=== PATIENT | female | born 1940 | race Caucasian/White ===

== ENCOUNTER 2023-09-05 12:18 | Outpatient (REF) | payer OTHER, SELFPAY ==
[2023-09-05 13:45] LABS: Vitamin B12 275 pg/mL (200-900)
== END 2023-09-05 12:19 | disposition home or self-care (01) ==
LOC: HO.LAB 12:18
PROVIDERS: PCP Internal Medicine; Visit Provider Psychiatry & Neurology Neurology
DX: G30.9 Alzheimer's disease, unspecified (principal)
CPT/HCPCS: 36415; 82607

== ENCOUNTER 2025-05-15 09:18 | Outpatient (REF) | payer MEDICARE, OTHER, SELFPAY ==
[2025-05-15 14:16] LABS: Alanine Aminotransferase 13 U/L (0-31); Albumin Level 4.5 g/dL (3.5-5.0); Alkaline Phosphatase 61 U/L (39-117); Anion Gap 11 (12-20); Aspartate Amino Transferase 26 U/L (5-31); Blood Urea Nitrogen 25 mg/dL (9-16); Calcium 10.2 mg/dL (8.4-10.2); Carbon Dioxide 29 mmol/L (22-29); Chloride 109 mmol/L (96-108); Estimated Glomerular Filt Rate 33; Potassium 4.6 mmol/L (3.3-5.1); Sodium 144 mmol/L (135-145); Total Protein 7.1 g/dL (6.5-8.0)
[2025-05-15 15:12] LABS: Parathyroid Hormone Intact 157.6 pg/mL (8.7-77.1)
[2025-05-17 21:43] LABS: Prot Elec - Albumin 4.1 g/dL (3.8-4.8); Prot Elec - Alpha1 0.3 g/dL (0.2-0.3); Prot Elec - Alpha2 0.7 g/dL (0.5-0.9); Prot Elec - Beta 1 0.4 g/dL (0.4-0.6); Prot Elec - Beta 2 0.4 g/dL (0.2-0.5); Prot Elec - Gamma 0.7 g/dL (0.8-1.7); Prot Elec - Total Protein 6.7 g/dL (6.1-8.1)
== END 2025-05-15 09:19 | disposition home or self-care (01) ==
LOC: HO.HKASLDS 09:18
PROVIDERS: PCP Internal Medicine; Referring Provider Internal Medicine; Visit Provider Internal Medicine Hypertension Specialist
DX: N18.30 Chronic kidney disease, stage 3 unspecified (principal); D64.9 Anemia, unspecified
CPT/HCPCS: 36415; 80053; 83970; 84165; 99202

== ENCOUNTER 2025-05-15 09:18 | Outpatient (AMB) | payer MEDICARE, OTHER, SELFPAY ==
[2025-05-15 09:20] VITALS: BP 132/80; PULSE 60; O2SAT 93; BMI 20.8
--- NOTE | 2025-05-15 09:20 | HO.NEPHOV ---
Vital Signs 05/15/25 09:20 Height 5 ft 6 in Weight 129 lb BMI 20.8 BP 132/80 Blood Pressure Location Rt brachial Position Sitting Pulse 60 Pulse Source Pulse Oximeter Pulse Oximetry (%) 93 Oxygen Delivery Method Room Air Intake Visit Reasons: ENP: Hypertension/ LVM [employer] Required: No Accompanied by: Daughter Allergies No Known Allergies Allergy (Verified 05/15/25 09:23) Medication List - Last Reconciled 05/15/25 by Emre Moss MD albuterol sulfate 90 mcg/actuation 2 puffs inhalation Q6H PRN aspirin 81 mg PO DAILY atorvastatin 10 mg PO DAILY fluticasone furoate-vilanterol 100-25 mcg/dose (Breo Ellipta) 1 ea inhalation DAILY levothyroxine 50 mcg PO DAILY memantine 5 mg PO DAILY timolol maleate 0.5% 1 drp ophthalmic (eye) BID HPI Comments Details: The patient is an 84-year-old female presenting with chronic kidney disease and cognitive decline. The cognitive decline began a couple of years ago and has been progressively worsening, with a diagnosis of vascular dementia suggested by Dr. Toussaint based on an MRI from 2019. The patient has no family history of dementia, and potential causes such as chronic alcohol use and hypertension have been ruled out. She has no history of hypertension. No history of alcohol use at all The chronic kidney disease was identified during a routine follow-up when labs revealed a creatinine level of 1.61 mg/dL and kidney function at 32ml/mt. The patient has not been diagnosed with hypertension, although it was initially suspected as a cause for referral. The patient experiences frequent nocturia, getting up several times at night, which may be related to her kidney function. The patient has a history of recurrent urinary tract infections, managed with low-dose macrobid by her primary care physician. These infections have decreased in frequency recently, but she continues to experience frequent urination at night. Anemia was noted with a hemoglobin level of 11.4 g/dL, . Seen by Dr. Eaton and advised against iron supplementation due to age-related anemia being common. The patient has hypothyroidism, which was previously poorly managed due to non-adherence to medication, resulting in a TSH level of 12. Her thyroid function has since stabilized with her managing her medication regimen. Overall oral intake has been inadequate. She drinks Coke every day. [facility] Medical History (Updated 05/15/25 @ 09:33 by Emre Moss MD) Restless leg syndrome Osteoporosis Hypothyroidism Glaucoma Colon polyp Cervical spinal stenosis Atherosclerosis of aorta Adrenal adenoma Abdominal aortic aneurysm Stage 3 severe COPD by GOLD classification Centrilobular emphysema Advanced COPD Age-related cataract of both eyes Irritable bowel syndrome Bloating Pulmonary nodules B12 deficiency CKD (chronic kidney disease), stage III Bladder stone Urge incontinence Chronic headache Elevated blood pressure reading Surgical History H/O breast biopsy H/O cataract extraction (~01/2011) Family History Sister Breast cancer Review of Systems Const Denies anorexia, Denies fever(s) and Denies weakness Eyes Denies blurry vision Card Denies no additional complaints and Denies dyspnea Resp Reports no additional complaints, Reports cough and Denies dyspnea GI Denies melena and Denies diarrhea Denies hematuria Musc Denies tingling Skin/Breast Denies rash Neuro Denies focal weakness, Denies tingling, Denies tremor(s) and Denies weakness Physical Exam Vital Signs: Last Vital Signs Pulse 60 05/15/25 09:20 BP 132/80 05/15/25 09:20 Pulse Ox 93 05/15/25 09:20 Oxygen Delivery Method Room Air 05/15/25 09:20 BMI result Body Mass Index 20.8 Comfortable Neck supple no JVD. Lungs entry equal no rales. Heart S1-S2 heard no gallop or rub. Abdomen soft nontender. Neuro alert awake oriented. No asterixis. Extremities no edema. Assessment & Plan Assessment & Plan (1) CKD (chronic kidney disease), stage III: Code(s): N18.30 - Chronic kidney disease, stage 3 unspecified Category: Medical (2) Anemia: Code(s): D64.9 - Anemia, unspecified Category: Medical Plan Aster has chronic kidney disease. Etiology needs to be determined. Cannot rule out a component of acute kidney injury at this time. No history of hypertension. I will initiate a workup including basic urine studies along with urine protein creatinine ratio. Obtain renal ultrasonogram to assess echogenicity and rule out hydronephrosis given the history of frequent urination/UTI. I will also order basic serologies. Increase your increase her p.o. fluid intake Continue to avoid nephrotoxic agents including NSAIDs. I have not made any changes to her medications today. She returned office next few weeks after the basic workup is completed. Orders: Orders US renal BI Today N18.30 - Chronic kidney disease, stage 3 unspecified Comprehensive Met. Panel Today D64.9 - Anemia, unspecified, N18.30 - Chronic kidney disease, stage 3 unspecified Parathyroid Hormone Intact Today D64.9 - Anemia, unspecified, N18.30 - Chronic kidney disease, stage 3 unspecified Total Protein Urine Random Today D64.9 - Anemia, unspecified, N18.30 - Chronic kidney disease, stage 3 unspecified UA and rflx microscopic Today D64.9 - Anemia, unspecified, N18.30 - Chronic kidney disease, stage 3 unspecified Creatinine Urine Today D64.9 - Anemia, unspecified, N18.30 - Chronic kidney disease, stage 3 unspecified Protein Electrophoresis, Serum Today D64.9 - Anemia, unspecified, N18.30 - Chronic kidney disease, stage 3 unspecified Coding Level of Care Code New Pt Level 4 (10406) Diagnoses CKD (chronic kidney disease), stage III N18.30 Anemia D64.9
--- OUTSIDE RECORDS SUMMARY | 2025-05-15 09:38 | XMS_ITS | Clinical Summary ---
Author Organization 175 [facility] Address [address] [place] [address] Phone Care Team Providers Care Community Living Coach Name Role Phone Gus Reynolds MD Primary Care Provider [phone] Allergies No known active allergies Medications fluticasone furoate-vilante roL (Breo Ellipta) 100-25 mcg/dose inhaler Inhale 1 Puff into the lungs daily. 04/11/20 24 Active timolol (TIMOPTIC) 0.5 % ophthalmic solution INSTILL 1 DROP INTO LEFT EYE TWICE A DAY 04/28/20 22 Active memantine (NAMENDA) 5 mg tablet Take 1 tablet (5 mg total) by mouth 1 (one) time each day. for 90 days 90 tablet 1 01/30/20 25 Active atorvastatin (LIPITOR) 10 mg tablet Take 1 tablet (10 mg total) by mouth 1 (one) time each day. 90 each 1 02/21/20 25 025 Active levothyroxine (SYNTHROID, LEVOTHROID) 50 mcg tablet TAKE 1 TABLET TUESDAY THROUGH TUESDAY, 2 TABLETS ON SATURDAYS AND SUNDAYS. 114 tablet 1 04/15/20 25 Active albuterol HFA (Ventolin HFA) 90 mcg/actuation inhalerIndicati ons:Chronic obstructive pulmonary disease, unspecified COPD type (CMS/HCC V24, CMS/HCC V28) Inhale 2 puffs by mouth every 6 (six) hours if needed for wheezing. 6.7 g 11 08/14/20 025 Discontinued dorzolamide (TRUSOPT) 2 % ophthalmic solution Left eye 10/30/19 025 Discontinued atorvastatin (LIPITOR) 10 mg tablet TAKE 1 TABLET BY MOUTH 1 TIME EACH DAY. 90 tablet 1 02/20/20 025 Discontinued Active Problems Problem Noted Date Diagnosed Date Elevated blood pressure reading 04/24/2024 Chronic headaches 10/21/2020 Urge incontinence 04/19/2020 Overview (08/28/2024): [facility] Bladder stone 03/27/2020 Overview (08/28/2024): Surgery 03/2020 CKD (chronic kidney disease) , stage III ([facility] V24, [facility] V28) 03/27/2020 Overview (08/28/2024): Dr. Casas in past B12 deficiency 11/02/2019 Overview (08/28/2024): 10/2019 labs, trying high-dose oral supplementation, good response Pulmonary nodules 08/14/2019 Bloating 02/01/2019 Irritable bowel syndrome 02/01/2019 Age-related cataract of both eyes 06/23/2018 Advanced COPD ([facility] V24, [facility] V28) 018 Centrilobular emphysema ([facility] V24, [facility] V2 8) 05/05/2018 Stage 3 severe COPD by GOLD classification ([facility] V24, [facility]/HCC V28) 05/05/2018 Overview (08/28/2024): Reduced DLCO with PFTs Pulm nodules, following with [facility] Lung Ca Screening, pulmonology Abdominal aortic aneurysm (AAA) ([facility] V24) Overview (08/28/2024): 02/2012: stable at 2.7 cm . 07/2012: stable at 3 cm. 2013 and 2014: 3.3 cm. 2019 3.7cm Adrenal adenoma 10/14/2017 Overview (08/28/2024): R adrenal 1.2 cm adenoma, 02/2012. Repeat CT scan 08/2012 stable Atherosclerosis of aorta ([facility] V24) 8 Cervical spinal stenosis 10/14/2017 Overview (08/28/2024): Cervical MRI C3-4 bilaterally Colon polyp 10/14/2017 Overview (08/28/2024): Polpectomy Dr. Wilde and repeat in 2015. Glaucoma 10/14/2017 HTN (hypertension) 10/14/2017 Hypothyroidism 10/14/2017 Osteoporosis 10/14/2017 Overview (08/28/2024): Start of Fosamax 11/26/20 Restless leg syndrome 10/14/2017 Encounters Date Type Department Care Team Description 05/02/[address] [facility] Hematology Oncology [address] [place] [address] Juwan Valdez MD 04/24/2025 3:00 PM EDT Office Visit [facility] Hematology Oncology [address] [place] [address] Juwan Valdez MD Normocytic anemia 04/18/2025 Telephone Internal Medicine - [place] [address] [phone] Gus Reynolds MD 04/18/2025 Telephone Internal Medicine [facility] [address] [phone] Gus Reynolds MD 04/11/2025 11:38 AM EDT - 04/11/2025 11:59 PM EDT Hospital Encounter [facility] Xray [address] [place] [address] Chronic obstructive pulmonary disease, unspecified COPD type (CMS/HCC V24, [facility] V28) Discharge Disposition: Home or Self Care 04/11/2025 10:35 AM EDT Office Visit Pulmonolgy - [place] [address] [phone] Jud Khan NP Chronic obstructive pulmonary disease, unspecified COPD type ([facility] V24, [facility] V28) (Primary Dx); Pulmonary nodules 03/22/2025 Telephone Internal Medicine - [address] [place] [address] Gus Reynolds MD Referral from Last 3 Months Immunizations Name Administration Dates Next Due Influenza trivalent, 0.5mL ( Fluad) 65yo and older 07/24/2024,06/02/2020,07/16/2019,06/23,07/04/2017 Influenza, Unspecified 06/10/2021 Pfizer SARS-CoV-2 COVID-19, mRNA, LNP-S, preservative free 12/10/2020,11/20/2020 Pneumococcal conjugate 13 va lent (Prevnar 13, PCV13) 2mo and older 08/19/2016 Pneumococcal polysaccharide 23 valent (Pneumovax 23) 2yo and older 08/22/2017,07/31/2010 Td Tetanus diptheria (Tdvax) 7yo and older 10/30/2019 Surgical History Surgery Date Site/Laterality Comments OTHER SURGICAL HISTORY PROCEDURE: AR EGD REMOVAL TUMOR POLYP/OTHER LESION SNARE TECH; COMMENT: polpectomy 2010 and repeat 2015, Dr. Wilde CATARACT EXTRACTION Bilateral PROCEDURE: HISTORICAL CATARACT REMOVAL COLONOSCOPY 01/11/2011 PROCEDURE: HISTORICAL COLONOSCOPY; COMMENT: Dr. Andry cherry OTHER SURGICAL HISTORY PROCEDURE: ---- OTHER ----; COMMENT: Breast biopsy Medical History Medical History Date Comments Osteoporosis 10/14/2017 DX:Osteoporosis COPD (chronic obstructive pu lmonary disease) ([facility] V24, [facility] V28) 10/14/2017 DX:COPD (chronic o bstructive pulmonary disease) (HCC) HTN (hypertension) 10/14/2017 DX:HTN (hyper tension) Hypothyroidism 10/14/2017 DX:Hypothyroidis m Restless leg syndrome 10/14/2017 DX:Restles s leg syndrome Colon polyp 10/14/2017 DX:Colon polyp; COMMENT: Polpectomy Dr. Wilde and repeat in 2015. Adrenal adenoma 10/14/2017 DX:Adrenal adeno ma; COMMENT: R adrenal 1.2 cm adenoma, 02/2012. Repeat CT scan 08/2012 stable Glaucoma 10/14/2017 DX:Glaucoma Atherosclerosis of aorta ([facility] V24) 10/14/2017 DX:Atherosclerosis of aorta (HCC) Abdominal aortic aneurysm (A AA) ([facility] V24) 10/14/2017 DX:Abdominal aortic aneurysm (AAA) (HCC); COMMENT: 02/2012: stable at 2.7 cm . 07/2012: stable at 3 cm. 2013 and 2014: 3.3 cm. Cervical spinal stenosis 10/14/2017 DX:Cerv ical spinal stenosis; COMMENT: Cervical MRI C3-4 bilaterally Family History Medical History Relation Name Comments Other: Unknown disease Father Other: Fluid around the lungs Mother Breast cancer Sister Relation Name Status Comments Father Mother Sister Social History Tobacco Use Types Packs/Day Years Used Date Smoking Tobacco: Former Cigarettes Q uit: 10/10/2005 Smokeless Tobacco: Never Comments Unknown Sex and Gender Information Value Date Recorded Sex Assigned at Female 12/27/2024 2:35 PM EDT Legal Sex Female 10:44 AM EST Gender Identity Female 12/27/2024 2:35 PM EDT Sexual Orientation Straight 12/27/2024 2: 35 PM EDT Obstetrics History Last Filed Vital Signs Vital Sign Reading Time Taken Comments Blood Pressure 150/98 04/24/2025 2:55 PM EDT Pulse 60 04/24/2025 2:55 PM EDT Temperature 37.1 C (98.8 F) 04/24/2025 2:55 PM EDT Respiratory Rate 16 04/11/2025 11:03 AM EDT Oxygen Saturation 97% 04/24/2025 2:55 PM EDT Inhaled Oxygen Concentration - - Weight 59 kg (130 lb) 04/24/2025 2:55 PM EDT Height 162.6 cm (5' 4 ) 04/24/2025 2:55 PM EDT Body Mass Index 22.31 04/24/2025 2:55 PM EDT Plan of Treatment Upcoming Encounters Date Type Department Care Team (Late st Contact Info) Description 05/27/2025 9:15 AM EDT Office Visit [facility] Hematology Oncology [address] [place] [address] Juwan Valdez MD [address] [place] [address] 04/22/2026 11:00 AM EDT Office Visit Pulmonolgy - [place] 175 [facility] [address] [place] [phone] Jud Khan NP 175 [facility] [address] [place] [address] Health Maintenance Due Date Last Done Comments Zoster Vaccines (1 of 2) 1959 Colorectal Cancer Screening: Colonoscopy 09/18/2022 Falls Risk Assessment 09/18/2022 Medicare Annual Wellness Visit 09/18/2022 Social Influencers of Health Screening 09/18/2022 Depression Screening 10/10/2024 COVID-19 Vaccine (7 - Pfizer risk season) 2025 08/01/2024, 08/05/2023, 06/21/2022, Additional history exists Influenza Vaccine (#1) 2025 , 08/02/2023, 08/05/2022, Additional history exists Hypertension/CHF/CAD Annual BMP Blood Test 04/24/2026 04/24/2025, 02/05/2025, 08/31/2024, Additional history exists DTaP,Tdap,and Td Vaccines (2 - Td or Tdap) 10/30/2029 10/30/2019 Cholesterol Screening (Lipid Panel) 02/05/2030 02/05/2025, 08/31/2024, 01/30/2024 Osteoporosis Screening (Bone Density Screening) 10/30/2030 10/30/2020, 12/13/2017 Pneumococcal Vaccine: 50+ Years Completed 08/22/2017, 08/19/2016, 07/31/2010 RSV Immunization Adult Patients Completed 08/01/2024 HIB Vaccines Aged Out No longer eligi ble based on patient's age to complete this topic HPV Vaccines Aged Out No longer eligi ble based on patient's age to complete this topic Hepatitis A Vaccines Aged Out No long er eligible based on patient's age to complete this topic Hepatitis B Vaccines Aged Out No long er eligible based on patient's age to complete this topic IPV Vaccines Aged Out No longer eligi ble based on patient's age to complete this topic MMR Vaccines Aged Out No longer eligi ble based on patient's age to complete this topic Meningococcal ACWY Vaccine Aged Out N o longer eligible based on patient's age to complete this topic Meningococcal B Vaccine Aged Out No l onger eligible based on patient's age to complete this topic RSV Immunization Patients Under 20 months Aged Out No longer eligible based on patient's age to complete this topic Varicella Vaccines Aged Out No longer eligible based on patient's age to complete this topic Procedures Procedure Name Priority Date/Time Associated Diagnosis Comments AR PROTEIN ELECTROPHORETIC FRACTIONATION & QUANTITATION SERUM Routine 04/24/2025 3:21 PM EDT Normocytic anemia PROTEIN, TOTAL Routine 04/24/2025 3:21 PM EDT Normocytic anemia CBC WITH AUTO DIFFERENTIAL Routine 04/24/2025 3:21 PM EDT Normocytic anemia BASIC METABOLIC PANEL Routine 04/24/2025 3:21 PM EDT Normocytic anemia PROTEIN ELECTROPHORESIS, SERUM Routine 04/24/2025 3:21 PM EDT Normocytic anemia ERYTHROPOIETIN Routine 04/24/2025 3:21 PM EDT Normocytic anemia RETICULOCYTE COUNT Routine 04/24/2025 3: 21 PM EDT Normocytic anemia VITAMIN B12 AND FOLATE Routine 3:21 PM EDT Normocytic anemia IRON AND TIBC Routine 04/24/2025 3:21 PM EDT Normocytic anemia FERRITIN Routine 04/24/2025 3:21 PM EDT Normocytic anemia CBC AND DIFFERENTIAL Routine 04/24/2025 3:21 PM EDT Normocytic anemia XR CHEST 2 VIEWS Routine 04/11/2025 11:5 5 AM EDT Chronic obstructive pulmonary disease, unspecified COPD type ([facility] V24, [facility] V28) LIPID PANEL WITH REFLEX TO DIRECT LDL Routine 02/05/2025 12:45 PM EDT Vascular dementia, unspecified dementia severity, unspecified whether behavioral, psychotic, or mood disturbance or anxiety ([facility] V24, [facility] V28) Stage 3 severe COPD by GOLD classification ([facility] V24, [facility] V28) Primary hypertension ABEL DEXA AXIAL SKELETON Routine 10/30/2020 2:27 PM EST Age-related osteoporosis without current pathological fracture from Last 3 Months or Most Recently Relevant to Health Maintenance Results * PATHOLOGIST REVIEW PROTEIN ELECTROPHORESIS (04/24/2025 3:21 PM EDT) Pathologist Interpretation Tayler Sneed MD 04/29/2025 3:16 PM EDT [facility] Blood Venous blood specimen / Unknown Venipuncture / Unknown 04/24/2025 3:21 PM EDT 04/24/2025 4:32 PM EDT Juwan Valdez MD LAB BLOOD ORDERABLES Final R esult [facility] [address] [place] [address], * Vitamin B12 and folate (04/24/2025 3:21 PM EDT) Vitamin B-12 358 250 - 900 pcg/mL LAB CHEMISTRY METHOD 04/24/2025 6:42 PM EDT [facility] Folate 11.4 2.8 - 17.0 ng/ml LAB CHEMISTRY METHOD 04/24/2025 6:42 PM EDT [facility] Blood Venous blood specimen / Unknown Venipuncture / Unknown 04/24/2025 3:21 PM EDT 04/24/2025 4:33 PM EDT us Juwan Valdez MD LAB BLOOD ORDERABLES Final R esult [facility] [address] [place] [address], * (ABNORMAL) CBC auto differential (04/24/2025 3:21 PM EDT) WBC 6.6 4.8 - 10.8 K/mcL LAB HEMETOLOGY METHOD 04/24/2025 4:56 PM EDT [facility] RBC 3.20(L) 3.80 - 4.80 M/mcL LAB HEMETOLOGY METHOD 04/24/2025 4:56 PM EDT [facility] Hemoglobin 10.7(L) 11.5 - 16.0 g/dL LAB HEMETOLOGY METHOD 04/24/2025 4:56 PM EDT [facility] Hematocrit 33.8(L) 35.0 - 47.0 % LAB HEMETOLOGY METHOD 04/24/2025 4:56 PM EDT [facility] MCV 105.0(H) 79.0 - 98.0 FL LAB HEMETOLOGY METHOD 04/24/2025 4:56 PM EDT [facility] MCH 33.2(H) 27.0 - 32.0 pcg LAB HEMETOLOGY METHOD 04/24/2025 4:56 PM EDT [facility] MCHC 31.7(L) 32.0 - 37.0 g/dL LAB HEMETOLOGY METHOD 04/24/2025 4:56 PM EDT [facility] RDW 12.9 11.0 - 15.0 % LAB HEMETOLOGY METHOD 04/24/2025 4:56 PM EDT [facility] Platelets 256 130 - 400 K/mcL LAB HEMETOLOGY METHOD 04/24/2025 4:56 PM EDT [facility] MPV 10.5 7.0 - 11.0 FL LAB HEMETOLOGY METHOD 04/24/2025 4:56 PM EDT [facility] NRBC 0.0 <1.0 % [facility]Y [facility] NRBC Absolute 0.00 <0.10 K/mcL LAB HEMETOLOGY METHOD 04/24[facility]2025 4[facility] Neutrophils Relative 63.4 % LAB HEMETOLOGY METHOD 04/24/2025 4:56 PM [facility] Lymphocytes Relative 22.4 % LAB HEMETOLOGY METHOD 04/24/2025 4:56 PM [facility] Monocytes Relative 10.5 % LAB HEMETOLOGY METHOD 04/24/2025 4:56 PM [facility] Eosinophils Relative 1.8 % LAB HEMETOLOGY METHOD 04/24/2025 4:56 PM [facility] Basophils Relative 1.4 % LAB HEMETOLOGY METHOD 04/24/2025 4:56 PM [facility] Immature Granulocytes Relative 0.5 % LAB HEMETOLOGY METHOD 04/24/2025 4:56 PM [facility] Neutrophils Absolute 4.17 1.50 - 7.00 K/mcL LAB HEMETOLOGY METHOD 04/24[facility]2025 4[facility] Lymphocytes Absolute 1.47 1.00 - 5.00 K/mcL LAB HEMETOLOGY METHOD 04/24/2025 4:56 [facility] Monocytes Absolute 0.69 0.20 - 1.00 K/mcL LAB HEMETOLOGY METHOD 04/24/2025 4:56 PM [facility] Eosinophils Absolute 0.12 0.00 - 0.50 K/mcL LAB HEMETOLOGY METHOD 04/24/2025 4:56 [facility] Basophils Absolute 0.09 0.00 - 0.20 K/[facility] HEMETOLOGY METHOD 04/24/2025 4:56 PM EDT [facility] Immature Granulocytes Absolute 0.03 0.00 - 0.03 K/[facility] LAB HEMETOLOGY METHOD 04/24/2025 4:56 PM EDT [facility] Blood Venous blood specimen / Unknown Venipuncture / Unknown 04/24/2025 3:21 PM EDT 04/24/2025 4:33 PM EDT Juwan Valdez MD LAB BLOOD ORDERABLES Final R esult [facility] [address] [place] [address], * Erythropoietin (04/24/2025 3:21 PM EDT) Erythropoietin 15.4 2.6 - 18.5 mIU/mL 04/29/2025 3:10 PM EDT [facility] Comment: Test performed at [facility], [address], [place] [address] Karyn Nash MD, PhD - Relief Worker Blood Venous blood specimen / Unknown Venipuncture / Unknown 04/24/2025 3:21 PM EDT 04/24/2025 4:33 PM EDT Juwan Valdez MD LAB BLOOD ORDERABLES Final R esult [facility] [address] [place] [address] * Iron and TIBC (04/24/2025 3:21 PM EDT) Iron 112 40 - 150 mcg/dL LAB CHEMISTRY METHOD 04/24/2025 6:19 PM EDT [facility] TIBC 275 250 - 450 mcg/dL LAB CHEMISTRY METHOD 04/24/2025 6:19 PM EDT [facility] Iron Saturation 41 15 - 50 % LAB CHEMISTRY METHOD 04/24/2025 6:19 PM EDT [facility] Blood Venous blood specimen / Unknown Venipuncture / Unknown 04/24/2025 3:21 PM EDT 04/24/2025 4:33 PM EDT Juwan Valdez MD LAB BLOOD ORDERABLES Final R esult [facility] [address] [place] [address], [place] [phone] * Reticulocyte count (04/24/2025 3:21 PM EDT) Retic Ct Abs 0.050 0.030 - 0.090 M/mcL LAB HEMETOLOGY METHOD 04/24/2025 4:56 PM EDT [facility] Retic Ct Pct 1.4 0.7 - 1.7 % LAB HEMETOLOGY METHOD 04/24/2025 4:56 PM EDT [facility] Immature Retic Fract 8.8 2.3 - 15.9 % LAB HEMETOLOGY METHOD 04/24/2025 4:56 PM EDT [facility] Reticulocyte Hemoglobin 36.6 >29.0 pcg LAB HEMETOLOGY METHOD 04/24/2025 4:56 PM EDT [facility] Blood Venous blood specimen / Unknown Venipuncture / Unknown 04/24/2025 3:21 PM EDT 04/24/2025 4:33 PM EDT Juwan Valdez MD LAB BLOOD ORDERABLES Final R esult [facility] [address] [place] [address], [place] [phone] * Protein electrophoresis, serum (04/24/2025 3:21 PM EDT) Total Protein 6.8 6.0 - 8.0 g/dL LAB CHEMISTRY METHOD 04/29/2025 3:16 PM EDT [facility] Albumin, Serum 3.7 2.9 - 4.1 g/dL LAB CHEMISTRY METHOD 04/29/2025 3:16 PM EDT [facility] Alpha 1 Globulin (g/dL) 0.2 0.1 - 0.5 g/dL LAB CHEMISTRY METHOD 04/29/2025 3:16 PM EDT [facility] Alpha 2 Globulin (g/dL) 1.1 0.7 - 1.5 g/dL LAB CHEMISTRY METHOD 04/29/2025 3:16 PM EDT [facility] Beta (g/dL) 1.1 0.7 - 1.5 g/dL LAB CHEMISTRY METHOD 04/29/2025 3:16 PM EDT [facility] Gamma Globulin (g/dL) 0.7 0.7 - 1.9 g/dL LAB CHEMISTRY METHOD 04/29/2025 3:16 PM EDT [facility] SPEP Interpretation No M-Forest seen. Essentially normal pattern. LAB CHEMISTRY METHOD 04/29/2025 3:16 PM EDT [facility] Blood Venous blood specimen / Unknown Venipuncture / Unknown 04/24/2025 3:21 PM EDT 04/24/2025 4:32 PM EDT us Juwan Valdez MD LAB BLOOD ORDERABLES Final R esult [facility] [address] [place] [address], * Protein, total (04/24/2025 3:21 PM EDT) Total Protein 6.8 6.0 - 8.0 g/dL LAB CHEMISTRY METHOD 04/24/2025 6:15 PM EDT [facility] Blood Venous blood specimen / Unknown Venipuncture / Unknown 04/24/2025 3:21 PM EDT 04/24/2025 4:32 PM EDT Juwan Valdez MD LAB BLOOD ORDERABLES Final R esult Performing Organization Address City/[facility]/ZIP Co de Phone Number [facility] [address] [place] [address], [place] [phone] * Ferritin (04/24/2025 3:21 PM EDT) Pathologist [facility] [place] Ferritin 154 8 - 252 ng/mL LAB CHEMISTRY METHOD 04/24/2025 6:42 PM EDT [facility] Blood Venous blood specimen / Unknown Venipuncture / Unknown 04/24/2025 3:21 PM EDT 04/24/2025 4:33 PM EDT Juwan Valdez MD LAB BLOOD ORDERABLES Final R esult Performing Organization Address City/[facility] Co de Phone Number [facility] [address] [place] [address], [place] [phone] * (ABNORMAL) Basic metabolic panel (04/24/2025 3:21 PM EDT) Pathologist [facility] [place] Sodium 140 133 - 145 mmol/L LAB CHEMISTRY METHOD 04/24/2025 6:19 PM EDT [facility] Potassium 4.7 3.5 - 5.5 mmol/L LAB CHEMISTRY METHOD 04/24/2025 6:19 PM EDT [facility] Chloride 108 96 - 110 mmol/L LAB CHEMISTRY METHOD 04/24/2025 6:19 PM EDT [facility] CO2 29 21 - 32 mmol/L LAB CHEMISTRY METHOD 04/24/2025 6:19 PM EDT [facility] Anion Gap 3 3 - 11 LAB CHEMISTRY METHOD 04/24/2025 6:19 PM EDT [facility] Glucose 99 70 - 100 mg/dL LAB CHEMISTRY METHOD 04/24/2025 6:19 PM EDT [facility] BUN 31(H) 5 - 25 mg/dL LAB CHEMISTRY METHOD 04/24/2025 6:19 PM EDT [facility] Creatinine 1.66(H) 0.50 - 1.10 mg/dL LAB CHEMISTRY METHOD 04/24/2025 6:19 PM EDT [facility] eGFR 30(L) >=60 mL/min/1. 73m2 LAB CHEMISTRY METHOD 04/24/2025 6:19 PM EDT [facility] Comment:Calculation based on the Chronic Kidney Disease Epidemiology Collaboration (CKD-EPI) equation refit without adjustment for race. BUN/Creatinine Ratio 18.7 LAB CHEMISTRY METHOD 04/24/2025 6:19 PM EDT [facility] Calcium 10.2 8.5 - 10.5 mg/dL LAB CHEMISTRY METHOD 04/24/2025 6:19 PM EDT [facility] Blood Venous blood specimen / Unknown Venipuncture / Unknown 04/24/2025 3:21 PM EDT 04/24/2025 4:33 PM EDT us Juwan Valdez MD LAB BLOOD ORDERABLES Final R esult [facility] [address] [place] [address], [place] [phone] * XR Chest 2 Views (04/11/2025 11:55 AM EDT) Anatomical Region Laterality Modality Body Radiographic Maranda ging 04/11/2025 11:5 8 AM EDT Impressions 04/11/2025 11:59 AM EDT No acute pulmonary disease. Findings as above consistent with COPD as also demonstrated on the prior study performed 05/17/2022. Code 26850 -------- FINAL REPORT -------- Dictated By: Johanny Lopez Dictated Date: 04/11/2025 11:58 ET Assigned Physician: Johanny Lopez Reviewed and Electronically Signed By: Johanny Lopez Signed Date: 04/11/2025 11:59 ET Workstation ID: [id number] Transcribed By: Self Edit Transcribed Date: 04/11/2025 11:58 ET Narrative 04/11/2025 11:59 AM EDT HISTORY: The patient is an 84-year-old female for follow-up of chronic obstructive pulmonary disease. FINDINGS: PA and lateral radiographs of the chest demonstrate the thoracic spine to be moderately kyphotic. The cardiac silhouette is within normal limits. The thoracic aorta is calcified and the descending thoracic aorta is tortuous. The lungs are again seen to be hyperinflated with flattening of the diaphragm consistent with chronic obstructive pulmonary disease as also demonstrated on the prior study performed 05/17/2022. There is no consolidation, mass, pulmonary vascular congestion, or pleural effusion. Procedure Note Johanny Lopez MD - 04/11/2025 HISTORY: The patient is an 84-year-old female for follow-up of chronicobstructive pulmonary disease. FINDINGS: PA and lateral radiographs of the chest demonstrate the thoracicspine to be moderately kyphotic. The cardiac silhouette is within normallimits. The thoracic aorta is calcified and the descending thoracic aortais tortuous. The lungs are again seen to be hyperinflated with flatteningof the diaphragm consistent with chronic obstructive pulmonary disease asalso demonstrated on the prior study performed 05/17/2022. There is noconsolidation, mass, pulmonary vascular congestion, or pleural effusion. IMPRESSION: No acute pulmonary disease. Findings as above consistent with COPD asalso demonstrated on the prior study performed 05/17/2022. Code 46011 -------- FINAL REPORT -------- Dictated By: Johanny Lopez Dictated Date: 04/11/2025 11:58 ET Assigned Physician: Johanny Lopez Reviewed and Electronically Signed By: Johanny Lopez Signed Date: 04/11/2025 11:59 ET Workstation ID: [id number] Transcribed By: Self Edit Transcribed Date: 04/11/2025 11:58 ET us Jud Khan BOTTLING MACHINE OPERATOR IMG XR PROCEDURES Final Result * Lipid panel with reflex to direct LDL (02/05/2025 12:45 PM EDT) Cholesterol 116 0 - 200 mg/dL LAB CHEMISTRY METHOD 02/05/2025 4:22 PM EDT [facility] Triglycerides 78 0 - 150 mg/dL LAB CHEMISTRY METHOD 02/05/2025 4:22 PM EDT [facility] HDL 69 >=40 mg/dL LAB CHEMISTRY METHOD 02/05/2025 4:22 PM EDT [facility] LDL Calculated 31 0 - 100 mg/dL LAB CHEMISTRY METHOD 02/05/2025 4:22 PM EDT [facility] VLDL Cholesterol Kendrick 15.6 mg/dL LAB CHEMISTRY METHOD 02/05/2025 4:22 PM EDT [facility] Non HDL Chol. (LDL+VLDL) 47 <145 mg/dL LAB CHEMISTRY METHOD 02/05/2025 4:22 PM EDT [facility] Chol/HDL Ratio 1.7 0.0 - 4.4 LAB CHEMISTRY METHOD 02/05/2025 4:22 PM EDT [facility] Blood Venous blood specimen / Unknown Venipuncture / Unknown 02/05/2025 12:45 PM EDT 02/05/2025 1:44 PM EDT us Gus Reynolds MD LAB BLOOD ORDERABLES Final Resul t [facility] [address] [place] [address], [place] [phone] * ABEL DEXA AXIAL SKELETON (10/30/2020 2:27 PM EST) Anatomical Region Laterality Modality Mammography 10/30/2020 1:47 PM EST Narrative 10/30/2020 2:27 PM EST [facility] Diagnostic Imaging Department [address] [place] [id number] Patient: ASTER FORBES Armani/Age/Sex: 1940 - 80 - F Unit#: [id number] Location/Status: SPDIMAM/REG CLI Mnemonic[facility] Ordering Physician: GOSIA HEAD MD Abel Dexa Axial Skeleton - 10/30/20 - HISTORY: The patient is a 80-year-old postmenopausal female with clinical concern for metabolic bone disease. FINDINGS: Dual energy x-ray absorptiometry of the lumbar spine and femurs is performed. The mean bone mineral density at L1-L4 is 0.797 gm/cm2 which is 68% of that of young normals and 82% of that of age matched controls. This yields a T-score of -3.2 and a Z-score of -1.5 which is diagnostic of osteoporosis. The mean bone mineral density of the femurs bilaterally is 0.710 gm/cm2 which is 70% of that of young normals and 92% of that of age matched controls. This yields a T-score of -2.4 and a Z-score of -0.5 which is diagnostic of osteopenia. However, the T-score of the right femoral neck is -2.0 and that of the left femoral neck is -3.2 which is diagnostic of osteoporosis. IMPRESSION: 1. Osteoporosis. 2. FRAX analysis yields a 10-year probability of major osteoporotic fracture of 5.4% and a 10-year probability of hip fracture of 16.7%. Code 41038 Dictating Physician: JOHANNY LOPEZ MD Electronically Signed by: JOHANNY LOPEZ MD Dic Date/Time: 10/30/20 142 Sign date/Time: 10/30/20 142 Procedure Note Johanny Lopez MD - 09/28/2022 [facility] Diagnostic Imaging Department [address] [place] [id number] Patient: ASTER FORBES /Age/Sex: 1940 - 80 - F Unit#: [id number] Location/Status: [facility] Mnemonic[facility] Ordering Physician: GOSIA HEAD MD Abel Dexa Axial Skeleton - 10/30/20 - HISTORY: The patient is a 80-year-old postmenopausal female withclinical concern for metabolic bone disease. FINDINGS: Dual energy x-ray absorptiometry of the lumbar spine and femursis performed. The mean bone mineral density at L1-L4 is 0.797 gm/cm2 which is68% of that of young normals and 82% of that of age matched controls. Thisyields a T-score of -3.2 and a Z-score of -1.5 which is diagnostic ofosteoporosis. The mean bone mineral density of the femurs bilaterally is 0.710 gm/[id number] is 70% of that of young normals and 92% of that of age matched controls.This yields a T-score of -2.4 and a Z-score of -0.5 which is diagnostic of osteopenia. However, the T-score of the right femoral neck is -2.0 andthat of the left femoral neck is -3.2 which is diagnostic of osteoporosis. IMPRESSION: 1. Osteoporosis. 2. FRAX analysis yields a 10-year probability of major osteoporoticfracture of 5.4% and a 10-year probability of hip fracture of 16.7%. Code 75089 Dictating Physician: JOHANNY LOPEZ MD Electronically Signed by: JOHANNY LOPEZ MD Dic Date/Time: 10/30/20 1426 Sign date/Time: 10/30/201426 Gosia Head MD IMG BI PROCEDURES Final Result from Last 3 Months or Most Recently Relevant to Health Maintenance Insurance [employer] Care Teams Community Living Coach Relationship Specialty Start Date End Date Gus Reynolds MD [address] [place] [address] [address] [place] [address] PCP - General Internal Medicine 05/25/21
== END 2025-05-15 10:23 | disposition home or self-care (01) ==
LOC: HO.HKAS 09:19
PROVIDERS: PCP Internal Medicine; Referring Provider Internal Medicine; Visit Provider Internal Medicine Hypertension Specialist
DX: N18.30 Chronic kidney disease, stage 3 unspecified (principal); D64.9 Anemia, unspecified
CPT/HCPCS: 99204

== ENCOUNTER 2025-05-22 10:07 | Outpatient (REF) | payer MEDICARE, OTHER, SELFPAY ==
--- NOTE | ~2025-05-22 | US_ITS ---
EXAMINATION: US KIDNEY BILATERAL HISTORY: CKD TECHNIQUE: Real-time grayscale ultrasound imaging of the kidneys was performed and images were reviewed. COMPARISON: There are no prior studies available for comparison. FINDINGS: Right kidney: The right kidney measures 7.3 x 3.9 x 4.0 cm. Renal parenchymal echotexture and thickness are normal. There are no masses. There is no hydronephrosis or renal calculi. Left Kidney: The left kidney measures 8.4 x 3.9 x 3.2 cm. Renal parenchymal echotexture and thickness are normal. There is a 10 mm cyst in the interpolar region. There is no hydronephrosis or renal calculi. US/US renal BI IMPRESSION: 10 mm left renal cyst. Otherwise unremarkable renal ultrasound. Electronically signed by: Vince Bruce MD 05/22/2025 10:48 AM EDT
--- OUTSIDE RECORDS SUMMARY | 2025-05-22 10:48 | XMS_ITS | Clinical Summary ---
Author Organization 175 [facility] Address [address] [place] [address] Phone Care Team Providers Care Hospital Insurance Representative Name Role Phone Gus Reynolds MD Primary Care Provider [phone] Allergies No known active allergies Medications fluticasone [...] CKD (chronic kidney disease) , stage III ([facility] V24, [facility] V28) 03/27/2020 Overview (08/28/2024): Dr. Casas in past B12 deficiency 11/02/2019 Overview (08/28/2024): 10/2019 labs, trying high-dose oral supplementation, good response Pulmonary nodules 08/14/2019 Bloating 02/01/2019 Irritable bowel syndrome 02/01/2019 Age-related cataract of both eyes 06/23/2018 Advanced COPD ([facility] V24, [facility] V28) 018 Centrilobular emphysema ([facility] V24, [facility] V2 8) 05/05/2018 Stage 3 severe COPD by GOLD classification ([facility] V24, [facility]/HCC V28) 05/05/2018 Overview (08/28/2024): Reduced DLCO with PFTs Pulm nodules, following with [facility] Lung Ca Screening, pulmonology Abdominal aortic aneurysm (AAA) ([facility] V24) Overview (08/28/2024): 02/2012: stable at 2.7 cm . 07/2012: stable at 3 cm. 2013 and 2014: 3.3 cm. 2019 3.7cm Adrenal adenoma 10/14/2017 Overview (08/28/2024): R adrenal 1.2 cm adenoma, 02/2012. Repeat CT scan 08/2012 stable Atherosclerosis of aorta ([facility] V24) 8 Cervical spinal stenosis 10/14/2017 Overview (08/28/2024): Cervical MRI C3-4 bilaterally Colon polyp 10/14/2017 Overview (08/28/2024): Polpectomy Dr. Wilde and repeat in 2015. Glaucoma 10/14/2017 HTN (hypertension) 10/14/2017 Hypothyroidism 10/14/2017 Osteoporosis 10/14/2017 Overview (08/28/2024): Start of Fosamax 11/26/20 Restless leg syndrome 10/14/2017 Encounters Date Type Department Care Team Description 05/02/2025 Telephone [facility] Hematology Oncology [address] [place] [address] Juwan Valdez MD 04/24/2025 3:00 PM EDT Office Visit [facility] Hematology Oncology [address] [place] [address] Juwan Valdez MD Normocytic anemia 04/18/2025 Telephone Internal Medicine - [place] [address] [address] Gus Reynolds MD 04/18/2025 Telephone Internal Medicine [facility] [address] [address] Gus Reynolds MD 04/11/2025 11:38 AM EDT - 04/11/2025 11:59 PM EDT Hospital Encounter [facility] Xray [address] [place] [address] Chronic obstructive pulmonary disease, unspecified COPD type (CMS/HCC V24, CMS/[facility] V28) Discharge Disposition: Home or Self Care 04/11/2025 10:35 AM EDT Office Visit Pulmonolgy - [place] [address] [address] Jud Khan NP Chronic obstructive pulmonary disease, unspecified COPD type ([facility] V24, [facility] V28) (Primary Dx); Pulmonary nodules 03/22/2025 Telephone Internal Medicine - [address] [place] [address] Gus Reynolds MD Referral from [...] Date Site/Laterality Comments OTHER SURGICAL HISTORY PROCEDURE: RI EGD REMOVAL TUMOR POLYP/OTHER LESION SNARE TECH; COMMENT: polpectomy 2010 and repeat 2015, Dr. Wilde CATARACT EXTRACTION Bilateral PROCEDURE: HISTORICAL CATARACT REMOVAL COLONOSCOPY 01/11/2011 PROCEDURE: HISTORICAL COLONOSCOPY; COMMENT: Dr. Andry cherry OTHER SURGICAL HISTORY PROCEDURE: ---- OTHER ----; COMMENT: Breast biopsy Medical History Medical History Date Comments Osteoporosis 10/14/2017 DX:Osteoporosis COPD (chronic obstructive pu lmonary disease) ([facility] V24, [facility] V28) 10/14/2017 DX:COPD (chronic o bstructive pulmonary [...] stable Glaucoma 10/14/2017 DX:Glaucoma Atherosclerosis of aorta ([facility] V24) 10/14/2017 DX:Atherosclerosis of aorta (HCC) Abdominal aortic aneurysm (A AA) ([facility] V24) 10/14/2017 DX:Abdominal aortic aneurysm (AAA) (HCC); [...] Description 05/27/2025 9:15 AM EDT Office Visit [facility] Hematology Oncology [address] [place] [address] Juwan Valdez MD [address] [place] [address] 04/22/2026 11:00 AM EDT Office Visit Pulmonolgy - [place] 175 [facility] [address] [place] [phone] Jud Khan NP 175 [facility] [address] [place] [address] Health Maintenance Due Date Last Done Comments [...] Procedure Name Priority Date/Time Associated Diagnosis Comments RI PROTEIN ELECTROPHORETIC FRACTIONATION & QUANTITATION SERUM Routine [...] Chronic obstructive pulmonary disease, unspecified COPD type ([facility] V24, [facility] V28) LIPID PANEL WITH REFLEX TO DIRECT LDL Routine 02/05/2025 12:45 PM EDT Vascular dementia, unspecified dementia severity, unspecified whether behavioral, psychotic, or mood disturbance or anxiety ([facility] V24, [facility] V28) Stage 3 severe COPD by GOLD classification ([facility] V24, [facility] V28) Primary hypertension ABEL DEXA AXIAL SKELETON Routine 10/30/2020 2:27 PM EST Age-related osteoporosis without current pathological fracture from Last 3 Months or Most Recently Relevant to Health Maintenance Results * PATHOLOGIST REVIEW PROTEIN ELECTROPHORESIS (04/24/2025 3:21 PM EDT) Pathologist Interpretation Tayler Sneed MD 04/29/2025 3:16 PM EDT [facility] Blood Venous blood specimen / Unknown Venipuncture / Unknown 04/24/2025 3:21 PM EDT 04/24/2025 4:32 PM EDT Juwan Valdez MD LAB BLOOD ORDERABLES Final R esult [facility] [address] [place] [address], * Vitamin B12 and folate (04/24/2025 3:21 PM EDT) Vitamin B-12 358 250 - 900 pcg/mL LAB CHEMISTRY METHOD 04/24/2025 6:42 PM EDT [facility] Folate 11.4 2.8 - 17.0 ng/ml LAB CHEMISTRY METHOD 04/24/2025 6:42 PM EDT [facility] Blood Venous blood specimen / Unknown Venipuncture / Unknown 04/24/2025 3:21 PM EDT 04/24/2025 4:33 PM EDT us Juwan Valdez MD LAB BLOOD ORDERABLES Final R esult [facility] [address] [place] [address], * (ABNORMAL) CBC auto differential (04/24/2025 3:21 PM EDT) WBC 6.6 4.8 - 10.8 K/mcL LAB HEMETOLOGY METHOD 04/24/2025 4:56 PM EDT [facility] RBC 3.20(L) 3.80 - 4.80 M/mcL LAB HEMETOLOGY METHOD 04/24/2025 4:56 PM EDT [facility] Hemoglobin 10.7(L) 11.5 - 16.0 g/dL LAB HEMETOLOGY METHOD 04/24/2025 4:56 PM EDT [facility] Hematocrit 33.8(L) 35.0 - 47.0 % LAB HEMETOLOGY METHOD 04/24/2025 4:56 PM EDT [facility] MCV 105.0(H) 79.0 - 98.0 FL LAB HEMETOLOGY METHOD 04/24/2025 4:56 PM EDT [facility] MCH 33.2(H) 27.0 - 32.0 pcg LAB HEMETOLOGY METHOD 04/24/2025 4:56 PM EDT [facility] MCHC 31.7(L) 32.0 - 37.0 g/dL LAB HEMETOLOGY METHOD 04/24/2025 4:56 PM EDT [facility] RDW 12.9 11.0 - 15.0 % LAB HEMETOLOGY METHOD 04/24/2025 4:56 PM EDT [facility] Platelets 256 130 - 400 K/mcL LAB HEMETOLOGY METHOD 04/24/2025 4:56 PM EDT [facility] MPV 10.5 7.0 - 11.0 FL LAB HEMETOLOGY METHOD 04/24/2025 4:56 PM EDT [facility] NRBC 0.0 <1.0 % LAB HEMETOLOGY METHOD 04/24/2025 4:[facility] NRBC Absolute 0.00 <0.10 K/mcL LAB HEMETOLOGY METHOD 04/24/2025 4:56 PM [facility] Neutrophils Relative 63.4 % LAB HEMETOLOGY METHOD 04/24/2025 4:56 PM [facility] Lymphocytes Relative 22.4 % LAB HEMETOLOGY METHOD 04/24/2025 4:56 PM [facility] Monocytes Relative 10.5 % LAB HEMETOLOGY METHOD 04/24/2025 4:56 PM [facility] Eosinophils Relative 1.8 % LAB HEMETOLOGY METHOD 04/24/2025 4:56 PM [facility] Basophils Relative 1.4 % LAB HEMETOLOGY METHOD 04/24/2025 4:56 PM [facility] Immature Granulocytes Relative 0.5 % LAB HEMETOLOGY METHOD 04/24/2025 4:56 PM [facility] Neutrophils Absolute 4.17 1.50 - 7.00 K/mcL LAB HEMETOLOGY METHOD 04/24/2025 4:56 PM [facility] Lymphocytes Absolute 1.47 1.00 - 5.00 K/mcL LAB HEMETOLOGY METHOD 04/24/2025 4:56 PM [facility] Monocytes Absolute 0.69 0.20 - 1.00 K/mcL LAB HEMETOLOGY METHOD 04/24/2025 4:56 PM [facility] Eosinophils Absolute 0.12 0.00 - 0.50 K/mcL LAB HEMETOLOGY METHOD 04/24/2025 4:56 PM [facility] Basophils Absolute 0.09 0.00 - 0.20 K/[facility] HEMETOLOGY METHOD 04/24/2025 4:56 PM EDT [facility] Immature Granulocytes Absolute 0.03 0.00 - 0.03 K/[facility] HEMETOLOGY METHOD 04/24/2025 4:56 PM EDT [facility] Blood Venous blood specimen / Unknown Venipuncture / Unknown 04/24/2025 3:21 PM EDT 04/24/2025 4:33 PM EDT Juwan Valdez MD LAB BLOOD ORDERABLES Final R esult [facility] [address] [place] [address], * Erythropoietin (04/24/2025 3:21 PM EDT) Erythropoietin 15.4 2.6 - 18.5 mIU/mL 04/29/2025 3:10 PM EDT [facility] Comment: Test performed at [facility], [address], [place] [address] Karyn Nash MD, PhD - Insurance Claims Processor Blood Venous blood specimen / Unknown Venipuncture / Unknown 04/24/2025 3:21 PM EDT 04/24/2025 4:33 PM EDT Juwan Valdez MD LAB BLOOD ORDERABLES Final R esult [facility] [address] [place] [address] * Iron and TIBC (04/24/2025 3:21 PM EDT) Iron 112 40 - 150 mcg/dL LAB CHEMISTRY METHOD 04/24/2025 6:19 PM EDT [facility] TIBC 275 250 - 450 mcg/dL LAB CHEMISTRY METHOD 04/24/2025 6:19 PM EDT [facility] Iron Saturation 41 15 - 50 % LAB CHEMISTRY METHOD 04/24/2025 6:19 PM EDT [facility] Blood Venous blood specimen / Unknown Venipuncture / Unknown 04/24/2025 3:21 PM EDT 04/24/2025 4:33 PM EDT Juwan Valdez MD LAB BLOOD ORDERABLES Final R esult [facility] [address] [place] [address], [place] [phone] * Reticulocyte count (04/24/2025 3:21 PM EDT) Retic Ct Abs 0.050 0.030 - 0.090 M/mcL LAB HEMETOLOGY METHOD 04/24/2025 4:56 PM EDT [facility] Retic Ct Pct 1.4 0.7 - 1.7 % LAB HEMETOLOGY METHOD 04/24/2025 4:56 PM EDT [facility] Immature Retic Fract 8.8 2.3 - 15.9 % LAB HEMETOLOGY METHOD 04/24/2025 4:56 PM EDT [facility] Reticulocyte Hemoglobin 36.6 >29.0 pcg LAB HEMETOLOGY METHOD 04/24/2025 4:56 PM EDT [facility] Blood Venous blood specimen / Unknown Venipuncture / Unknown 04/24/2025 3:21 PM EDT 04/24/2025 4:33 PM EDT Juwan Valdez MD LAB BLOOD ORDERABLES Final R esult [facility] [address] [place] [address], [place] [phone] * Protein electrophoresis, serum (04/24/2025 3:21 PM EDT) Total Protein 6.8 6.0 - 8.0 g/dL LAB CHEMISTRY METHOD 04/29/2025 3:16 PM EDT [facility] Albumin, Serum 3.7 2.9 - 4.1 g/dL LAB CHEMISTRY METHOD 04/29/2025 3:16 PM EDT [facility] Alpha 1 Globulin (g/dL) 0.2 0.1 - 0.5 g/dL LAB CHEMISTRY METHOD 04/29/2025 3:16 PM EDT [facility] Alpha 2 Globulin (g/dL) 1.1 0.7 - 1.5 g/dL LAB CHEMISTRY METHOD 04/29/2025 3:16 PM EDT [facility] Beta (g/dL) 1.1 0.7 - 1.5 g/dL LAB CHEMISTRY METHOD 04/29/2025 3:16 PM EDT [facility] Gamma Globulin (g/dL) 0.7 0.7 - 1.9 g/dL LAB CHEMISTRY METHOD 04/29/2025 3:16 PM EDT [facility] SPEP Interpretation No M-Forest seen. Essentially normal pattern. LAB CHEMISTRY METHOD 04/29/2025 3:16 PM EDT [facility] Blood Venous blood specimen / Unknown Venipuncture / Unknown 04/24/2025 3:21 PM EDT 04/24/2025 4:32 PM EDT us Juwan Valdez MD LAB BLOOD ORDERABLES Final R esult [facility] [address] [place] [address], * Protein, total (04/24/2025 3:21 PM EDT) Total Protein 6.8 6.0 - 8.0 g/dL LAB CHEMISTRY METHOD 04/24/2025 6:15 PM EDT [facility] Blood Venous blood specimen / Unknown Venipuncture / Unknown 04/24/2025 3:21 PM EDT 04/24/2025 4:32 PM EDT Juwan Valdez MD LAB BLOOD ORDERABLES Final R esult Performing Organization Address City/[facility]/ZIP Co de Phone Number [facility] [address] [place] [address], [place] [phone] * Ferritin (04/24/2025 3:21 PM EDT) Pathologist [facility] Ferritin 154 8 - 252 ng/mL LAB CHEMISTRY METHOD 04/24/2025 6:42 PM EDT [facility] Blood Venous blood specimen / Unknown Venipuncture / Unknown 04/24/2025 3:21 PM EDT 04/24/2025 4:33 PM EDT Juwan Valdez MD LAB BLOOD ORDERABLES Final R esult Performing Organization Address City/[facility] Co de Phone Number [facility] [address] [place] [address], [place] [phone] * (ABNORMAL) Basic metabolic panel (04/24/2025 3:21 PM EDT) Pathologist [facility] Sodium 140 133 - 145 mmol/L LAB CHEMISTRY METHOD 04/24/2025 6:19 PM EDT [facility] Potassium 4.7 3.5 - 5.5 mmol/L LAB CHEMISTRY METHOD 04/24/2025 6:19 PM EDT [facility] Chloride 108 96 - 110 mmol/L LAB CHEMISTRY METHOD 04/24/2025 6:19 PM EDT [facility] CO2 29 21 - 32 mmol/L LAB CHEMISTRY METHOD 04/24/2025 6:19 PM EDT [facility] Anion Gap 3 3 - 11 LAB CHEMISTRY METHOD 04/24/2025 6:19 PM EDT [facility] Glucose 99 70 - 100 mg/dL LAB CHEMISTRY METHOD 04/24/2025 6:19 PM EDT [facility] BUN 31(H) 5 - 25 mg/dL LAB CHEMISTRY METHOD 04/24/2025 6:19 PM EDT [facility] Creatinine 1.66(H) 0.50 - 1.10 mg/dL LAB CHEMISTRY METHOD 04/24/2025 6:19 PM EDT [facility] eGFR 30(L) >=60 mL/min/1. 73m2 LAB CHEMISTRY METHOD 04/24/2025 6:19 PM EDT [facility] Comment:Calculation based on the Chronic Kidney Disease Epidemiology Collaboration (CKD-EPI) equation refit without adjustment for race. BUN/Creatinine Ratio 18.7 LAB CHEMISTRY METHOD 04/24/2025 6:19 PM EDT [facility] Calcium 10.2 8.5 - 10.5 mg/dL LAB CHEMISTRY METHOD 04/24/2025 6:19 PM EDT [facility] Blood Venous blood specimen / Unknown Venipuncture / Unknown 04/24/2025 3:21 PM EDT 04/24/2025 4:33 PM EDT us Juwan Valdez MD LAB BLOOD ORDERABLES Final R esult [facility] [address] [place] [address], [place] [phone] * XR Chest 2 Views (04/11/2025 11:55 AM EDT) Anatomical Region Laterality Modality Body Radiographic Maranda ging 04/11/2025 11:5 8 AM EDT Impressions 04/11/2025 11:59 AM EDT No acute pulmonary disease. Findings as above consistent with COPD as also demonstrated on the prior study performed 05/17/2022. Code 70942 -------- FINAL REPORT -------- Dictated By: Johanny Lopez Dictated Date: 04/11/2025 11:58 ET Assigned Physician: Johanny Lopez Reviewed and Electronically Signed By: Johanny Lopez Signed Date: 04/11/2025 11:59 ET Workstation ID: [id number] Transcribed By: Self Edit Transcribed Date: 04/11/2025 [...] on the prior study performed 05/17/2022. Code 48133 -------- FINAL REPORT -------- Dictated By: Johanny Lopez Dictated Date: 04/11/2025 11:58 ET Assigned Physician: Johanny Lopez Reviewed and Electronically Signed By: Johanny Lopez Signed Date: 04/11/2025 11:59 ET Workstation ID: [id number] Transcribed By: Self Edit Transcribed Date: 04/11/2025 11:58 ET us Jud Khan RING CUTTER LATHE OPERATOR IMG XR PROCEDURES Final Result * Lipid panel with reflex to direct LDL (02/05/2025 12:45 PM EDT) Cholesterol 116 0 - 200 mg/dL LAB CHEMISTRY METHOD 02/05/2025 4:22 PM EDT [facility] Triglycerides 78 0 - 150 mg/dL LAB CHEMISTRY METHOD 02/05/2025 4:22 PM EDT [facility] HDL 69 >=40 mg/dL LAB CHEMISTRY METHOD 02/05/2025 4:22 PM EDT [facility] LDL Calculated 31 0 - 100 mg/dL LAB CHEMISTRY METHOD 02/05/2025 4:22 PM EDT [facility] VLDL Cholesterol Kendrick 15.6 mg/dL LAB CHEMISTRY METHOD 02/05/2025 4:22 PM EDT [facility] Non HDL Chol. (LDL+VLDL) 47 <145 mg/dL LAB CHEMISTRY METHOD 02/05/2025 4:22 PM EDT [facility] Chol/HDL Ratio 1.7 0.0 - 4.4 LAB CHEMISTRY METHOD 02/05/2025 4:22 PM EDT [facility] Blood Venous blood specimen / Unknown Venipuncture / Unknown 02/05/2025 12:45 PM EDT 02/05/2025 1:44 PM EDT us Gus Reynolds MD LAB BLOOD ORDERABLES Final Resul t [facility] [address] [place] [address], [place] [phone] * ABEL DEXA AXIAL SKELETON (10/30/2020 2:27 PM EST) Anatomical Region Laterality Modality Mammography 10/30/2020 1:47 PM EST Narrative 10/30/2020 2:27 PM EST [facility] Diagnostic Imaging Department [address] [place] [address] Patient: ASTER FORBES Armani/Age/Sex: 1940 - 80 - F Unit#: [id number] Location/Status: SPDIMAM/REG CLI Mnemonic[facility] Ordering Physician: GOSIA HEAD MD Abel Dexa [...] probability of hip fracture of 16.7%. Code 65343 Dictating Physician: JOHANNY LOPEZ MD Electronically Signed by: JOHANNY LOPEZ MD Dic Date/Time: 10/30/20 142 Sign date/Time: 10/30/20 142 Procedure Note Johanny Lopez MD - 09/28/2022 [facility] Diagnostic Imaging Department [address] [place] [address] Patient: ASTER FORBES /Age/Sex: 1940 - 80 - F Unit#: [id number] Location/Status: [facility] Mnemonic/[facility] Ordering Physician: GOSIA HEAD MD Abel Dexa [...] density of the femurs bilaterally is 0.710 gm/ph9ergfw is 70% of that of young normals [...] probability of hip fracture of 16.7%. Code 06231 Dictating Physician: JOHANNY LOPEZ MD Electronically Signed by: JOHANNY LOPEZ MD Dic Date/Time: 10/30/20 1426 Sign date/Time: 10/30/201426 Gosia Head MD IMG BI PROCEDURES Final Result from Last 3 Months or Most Recently Relevant to Health Maintenance Insurance [employer] Care Teams Hospital Insurance Representative Relationship Specialty Start Date End Date Gus Reynolds MD [address] [place] [address] [address] [place] [address] PCP - General Internal Medicine 05/25/21
== END 2025-05-22 10:08 | disposition home or self-care (01) ==
LOC: HO.US 10:07
PROVIDERS: PCP Internal Medicine; Visit Provider Internal Medicine Hypertension Specialist
DX: N18.30 Chronic kidney disease, stage 3 unspecified (principal)
CPT/HCPCS: 76775

== ENCOUNTER → 2025-05-22 10:11 | Outpatient (BNV) | payer MEDICARE, OTHER, SELFPAY | PROVIDERS: PCP Internal Medicine; Visit Provider Radiology Diagnostic Radiology | DX: N28.1 Cyst of kidney, acquired (principal) | CPT/HCPCS: 76775 ==

== ENCOUNTER 2025-06-17 09:42 | Outpatient (AMB) | payer OTHER, SELFPAY ==
--- NOTE | 2025-06-17 09:43 | HO.NEPHOV_ITS ---
Vital Signs 06/17/25 09:43 Height 5 ft 6 in Intake Visit Reasons: Lab Results Portfolio Strategist Required: No Accompanied by: Daughter Allergies No Known Allergies Allergy (Verified 06/17/25 09:44) Medication List - Last Reconciled 06/17/25 by Emre Moss MD albuterol sulfate 90 mcg/actuation 2 puffs inhalation Q6H PRN aspirin 81 mg PO DAILY atorvastatin 10 mg PO DAILY fluticasone furoate-vilanterol 100-25 mcg/dose (Breo Ellipta) 1 ea inhalation DAILY levothyroxine 50 mcg PO DAILY memantine 5 mg PO DAILY timolol maleate 0.5% 1 drp ophthalmic (eye) BID HPI Comments Details: The patient is an 84-year-old female presenting with chronic kidney disease and cognitive decline. The cognitive decline began a couple of years ago and has been progressively worsening, with a diagnosis of vascular dementia suggested by Dr. Toussaint based on an MRI from 2019. The patient has no family history of brandie ia, and potential causes such as chronic alcohol use and hypertension have been ruled out. She has no history of hypertension. No history of alcohol use at all The chronic kidney disease was identified during a routine follow-up when labs revealed a creatinine level of 1.61 mg/dL and kidney function at 32ml/mt. The patient has not been diagnosed with hypertension, although it was initially suspected as a cause for referral. The patient experiences frequent nocturia, getting up several times at night, which may be related to her kidney function. The patient has a history of recurrent urinary tract infections, managed with low-dose macrobid by her primary care physician. These infections have decreased in frequency recently, but she continues to experience frequent urination at night. Anemia was noted with a hemoglobin level of 11.4 g/dL, . Seen by Dr. Eaton and advised against iron supplementation due to age-related anemia being common. The patient has hypothyroidism, which was previously poorly managed due to non- adherence to medication, resulting in a TSH level of 12. Her thyroid function has since stabilized with her managing her medication regimen. Overall oral intake has been inadequate. She drinks Coke every day. 06/17/25 Televisit Cr down to 1.40 Spoke to [place]/Daughter [facility] Medical History (Updated 05/15/25 @ 09:33 by Emre Moss MD) Restless leg syndrome Osteoporosis Hypothyroidism Glaucoma Colon polyp Cervical spinal stenosis Atherosclerosis of aorta Adrenal adenoma Abdominal aortic aneurysm Stage 3 severe COPD by GOLD classification Centrilobular emphysema Advanced COPD Age-related cataract of both eyes Irritable bowel syndrome Bloating Pulmonary nodules B12 deficiency CKD (chronic kidney disease), stage III Bladder stone Urge incontinence Chronic headache Elevated blood pressure reading Surgical History H/O breast biopsy H/O cataract extraction (~01/2011) Family History Sister Breast cancer Telehealth Telehealth Telehealth Platform: Telephone Location of provider rendering services: practice address Location of patient: address on file Patient Identification confirmed using: Name, : Yes Telehealth method: voice only Patient verbally consented to treatment: Yes Patient verbally consented to billing insurance company: Yes Patient informed of any privacy concerns related to visit: Yes Minutes spent on Phone/Video with Pt.: 12 Results Reviewed Nephrology Results: Sodium, (135-145) 144 mmol/L 05/15/25 Potassium, (3.3-5.1) 4.6 mmol/L 05/15/25 Chloride, (96-108) 109 mmol/L H 05/15/25 Carbon Dioxide, (22-29) 29 mmol/L 05/15/25 BUN, (9-16) 25 mg/dL H 05/15/25 Creatinine, (0.5-1.4) 1.49 mg/dL H 05/15/25 Calcium, (8.4-10.2) 10.2 mg/dL 05/15/25 PTH Intact, (8.7-77.1) 157.6 pg/mL H 05/15/25 Renal US 05/22/25 Assessment & Plan Assessment & Plan (1) CKD (chronic kidney disease), stage III: Code(s): N18.30 - Chronic kidney disease, stage 3 unspecified Category: Medical (2) Anemia: Code(s): D64.9 - Anemia, unspecified Category: Medical Plan Aster has chronic kidney disease. Etiology needs to be determined. Cannot rule out a component of acute kidney injury at this time. No history of hypertension. I will initiate a workup including basic urine studies along with urine protein creatinine ratio. Obtain renal ultrasonogram to assess echogenicity and rule out hydronephrosis given the history of frequent urination/UTI. I will also order basic serologies. Increase your increase her p.o. fluid intake Continue to avoid nephrotoxic agents including NSAIDs. I have not made any changes to her medications today. She returned office next few weeks after the basic workup is completed. 06/17 Marginal improvement in Creatinine Elevated PTH due to secondary hyperparathyroidism- On Vit D 2000 U q weekly Calcium Normal No MCGP Hypogammaglobuminemia Will check serum Immunefixation Mild Anemia Orders: Orders Immunofixation Pnl, Serum 1 Week D64.9 - Anemia, unspecified, N18.30 - Chronic kidney disease, stage 3 unspecified Complete Blood Count Auto Diff 1 Week D64.9 - Anemia, unspecified, N18.30 - Chronic kidney disease, stage 3 unspecified Basic Metabolic Panel 1 Week D64.9 - Anemia, unspecified, N18.30 - Chronic kidney disease, stage 3 unspecified Coding Level of Care Code Tele Est Pt Level 2 (91941) Diagnoses CKD (chronic kidney disease), stage III N18.30 Anemia D64.9
--- OUTSIDE RECORDS SUMMARY | 2025-06-17 11:05 | XMS_ITS | Clinical Summary ---
Author Organization 175 [facility] Address [address] [place] [address] Phone Care Team Providers Care Campaign Manager Name Role Phone Gus Reynolds MD Primary Care Provider [phone] Allergies No known active allergies Medications fluticasone furoate-vilante roL (Breo Ellipta) 100-25 mcg/dose inhaler Inhale 1 Puff into the lungs daily. 4 Active timolol (TIMOPTIC) 0.5 % ophthalmic solution INSTILL 1 DROP INTO LEFT EYE TWICE A DAY 2 Active memantine (NAMENDA) 5 mg tablet Take 1 tablet (5 mg total) by mouth 1 (one) time each day. for 90 days 90 tablet 1 5 Active atorvastatin (LIPITOR) 10 mg tablet Take 1 tablet (10 mg total) by mouth 1 (one) time each day. 90 each 1 5 08/19/20 25 Active levothyroxine (SYNTHROID, LEVOTHROID) 50 mcg tablet TAKE 1 TABLET TUESDAY THROUGH TUESDAY, 2 TABLETS ON SATURDAYS AND SUNDAYS. 114 tablet 1 5 Active Active Problems Problem Noted Date Diagnosed Date Elevated blood pressure reading 04/24/2024 Chronic headaches 10/21/2020 Urge incontinence 04/19/2020 Overview (08/28/2024): [facility] Bladder stone 03/27/2020 Overview (08/28/2024): Surgery 03/2020 CKD (chronic kidney disease) , stage III ([facility] V24, [facility] V28) 03/27/2020 Overview (08/28/2024): Dr. Casas in past B12 deficiency 11/02/2019 Overview (08/28/2024): 10/2019 labs, trying high-dose oral supplementation, good response Pulmonary nodules 08/14/2019 Bloating 02/01/2019 Irritable bowel syndrome 02/01/2019 Age-related cataract of both eyes 06/23/2018 Advanced COPD ([facility] V24, [facility] V28) 018 Centrilobular emphysema ([facility] V24, [facility] V2 8) 05/05/2018 Stage 3 severe COPD by GOLD classification ([facility] V24, [facility] V28) 05/05/2018 Overview (08/28/2024): Reduced DLCO with PFTs Pulm nodules, following with [facility], pulmonology Abdominal aortic aneurysm (AAA) ([facility] V24) Overview (08/28/2024): 02/2012: stable at 2.7 cm . 07/2012: stable at 3 cm. 2013 and 2014: 3.3 cm. 2019 3.7cm Adrenal adenoma 10/14/2017 Overview (08/28/2024): R adrenal 1.2 cm adenoma, 02/2012. Repeat CT scan 08/2012 stable Atherosclerosis of aorta ([facility] V24) 8 Cervical spinal stenosis 10/14/2017 Overview (08/28/2024): Cervical MRI C3-4 bilaterally Colon polyp 10/14/2017 Overview (08/28/2024): Polpectomy Dr. Wilde and repeat in 2015. Glaucoma 10/14/2017 HTN (hypertension) 10/14/2017 Hypothyroidism 10/14/2017 Osteoporosis 10/14/2017 Overview (08/28/2024): Start of Fosamax 11/26/20 Restless leg syndrome 10/14/2017 Encounters Date Type Department Care Team Description 05/02/2025 Telephone [facility] Hematology Oncology [address] [place] [phone] Juwan Valdez MD 04/24/2025 3:00 PM EDT Office Visit [facility] Hematology Oncology [address] [place] [phone] Juwan Valdez MD Normocytic anemia 04/18/2025 Telephone Internal Medicine [facility] [address] [phone] Gus Reynolds MD 04/18/2025 Telephone Internal Medicine [address] [phone] Gus Reynolds MD 04/11/2025 11:38 AM EDT - 04/11/2025 11:59 PM EDT Hospital Encounter [facility] Xray [address] [place] [phone] Chronic obstructive pulmonary disease, unspecified COPD type (CMS/HCC V24, CMS/HCC V28) Discharge Disposition: Home or Self Care 04/11/2025 10:35 AM EDT Office Visit [place]gy - [place] [address] [phone] Jud Khan NP Chronic obstructive pulmonary disease, unspecified COPD type (CMS/HCC V24, CMS/HCC V28) (Primary Dx); Pulmonary nodules 03/22/2025 Telephone Internal Medicine [address] [phone] Gus Reynolds MD from Last 3 Months Immunizations Name Administration [...] Date Site/Laterality Comments OTHER SURGICAL HISTORY PROCEDURE: MN EGD REMOVAL TUMOR POLYP/OTHER LESION SNARE TECH; COMMENT: polpectomy 2010 and repeat 2015, Dr. Wilde CATARACT EXTRACTION Bilateral PROCEDURE: HISTORICAL CATARACT REMOVAL COLONOSCOPY 01/11/2011 PROCEDURE: HISTORICAL COLONOSCOPY; COMMENT: Dr. Andry cherry OTHER SURGICAL HISTORY PROCEDURE: ---- OTHER ----; COMMENT: Breast biopsy Medical History Medical History Date Comments Osteoporosis 10/14/2017 DX:Osteoporosis COPD (chronic obstructive pu lmonary disease) ([facility] [place], [facility] V28) 10/14/2017 DX:COPD (chronic o bstructive pulmonary disease) ([facility]) HTN (hypertension) 10/14/2017 DX:HTN (hyper tension) Hypothyroidism 10/14/2017 DX:Hypothyroidis m Restless leg syndrome 10/14/2017 DX:Restles s leg syndrome Colon polyp 10/14/2017 DX:Colon polyp; COMMENT: Polpectomy Dr. Wilde and repeat in 2015. Adrenal adenoma 10/14/2017 DX:Adrenal adeno ma; COMMENT: R adrenal 1.2 cm adenoma, 02/2012. Repeat CT scan 08/2012 stable Glaucoma 10/14/2017 DX:Glaucoma Atherosclerosis of aorta ([facility] [place] V24) 10/14/2017 DX:Atherosclerosis of aorta ([facility]) Abdominal aortic aneurysm (A AA) ([facility] [place] V24) 10/14/2017 DX:Abdominal aortic aneurysm (AAA) ([facility]); COMMENT: 02/2012: stable at 2.7 cm . [...] Care Team (Late st Contact Info) Description 06/24/2025 3:35 PM EDT Office Visit [facility] Hematology Oncology [address] [place] [phone] Juwan Valdez MD [address] [place] [address] 04/22/2026 11:00 AM EDT Office Visit Pulmonolgy - [place] 175 [facility] [address] [place] [phone] Jud Khan NP [address] [place] [phone] Health Maintenance Due Date Last Done Comments [...] Procedure Name Priority Date/Time Associated Diagnosis Comments EXTERNAL ULTRASOUND REPORT 05/22/2025 [place] PROTEIN ELECTROPHORETIC FRACTIONATION & QUANTITATION SERUM Routine [...] unspecified COPD type (CMS/HCC V24, CMS/HCC V28) LIPID PANEL WITH REFLEX TO DIRECT LDL Routine 02/05/2025 12:45 PM EDT Vascular dementia, unspecified dementia severity, unspecified whether behavioral, psychotic, or mood disturbance or anxiety (CMS/HCC V24, CMS/HCC V28) Stage 3 severe COPD by GOLD classification (CMS/HCC V24, CMS/HCC V28) Primary hypertension ABEL DEXA AXIAL SKELETON Routine 10/30/2020 2:27 PM EST Age-related osteoporosis without current pathological fracture from Last 3 Months or Most Recently Relevant to Health Maintenance Results * External Ultrasound Report (05/22/2025) Anatomical Region Laterality Modality Ultrasound us Provider [facility] US PROCEDURES Final Result * PATHOLOGIST REVIEW PROTEIN ELECTROPHORESIS (04/24/2025 3:21 PM EDT) Pathologist Interpretation Tayler Sneed MD 04/29/2025 3:16 PM EDT [facility] Blood Venous blood specimen / Unknown Venipuncture / Unknown 04/24/2025 3:21 PM EDT 04/24/2025 4:32 PM EDT Juwan Valdez MD LAB BLOOD ORDERABLES Final R esult Performing Organization Address City/[facility]/ZIP Co de Phone Number [facility] [address] [place] [address], [place] [phone] * Vitamin B12 and folate (04/24/2025 3:21 PM EDT) Vitamin B-12 358 250 - 900 pcg/mL LAB CHEMISTRY METHOD 04/24/2025 6:42 PM EDT [facility] Folate 11.4 2.8 - 17.0 ng/ml LAB CHEMISTRY METHOD 04/24/2025 6:42 PM EDT [facility] Blood Venous blood specimen / Unknown Venipuncture / Unknown 04/24/2025 3:21 PM EDT 04/24/2025 4:33 PM EDT us Juwan Valdez MD LAB BLOOD ORDERABLES Final R esult [facility] [address] [place] [address], [place] [phone] * (ABNORMAL) CBC auto differential (04/24/2025 3:21 PM EDT) [facility] WBC 6.6 4.8 - 10.8 K/mcL LAB HEMETOLOGY METHOD 04/24/2025 4:56 PM EDT [facility] RBC 3.20(L) 3.80 - 4.80 M/mcL LAB HEMETOLOGY METHOD [facility]/24[facility]25 [facility] Hemoglobin 10.7(L) 11.5 - 16.0 g/dL LAB HEMETOLOGY METHOD 04/24/2025 4:56 PM EDT [facility] Hematocrit 33.8(L) 35.0 - 47.0 % LAB HEMETOLOGY METHOD 04/24/2025 4:56 [facility] MCV 105.0(H) 79.0 - 98.0 FL LAB HEMETOLOGY METHOD 04/24/2025 4:56 [facility] MCH 33.2(H) 27.0 - 32.0 pcg LAB HEMETOLOGY METHOD 04/24/2025 4:56 PM EDT [facility] MCHC 31.7(L) 32.0 - 37.0 g/dL LAB HEMETOLOGY METHOD 04/24/2025 4:56 [facility] RDW 12.9 11.0 - 15.0 % LAB HEMETOLOGY METHOD 04/24/2025 4:56 PM [facility] Platelets 256 130 - 400 K/mcL LAB HEMETOLOGY METHOD 04/24/2025 4:56 PM EDT [facility] MPV 10.5 7.0 - 11.0 FL LAB HEMETOLOGY METHOD 04/24/2025 4:56 [facility] NRBC 0.0 <1.0 % LAB HEMETOLOGY METHOD 04/24/2025 4:56 PM [facility] NRBC Absolute 0.00 <0.10 K/mcL LAB HEMETOLOGY METHOD 04/24/2025 4:56 PM EDT [facility] Neutrophils Relative 63.4 % LAB HEMETOLOGY METHOD 04/24/2025 4:56 [facility] Lymphocytes Relative 22.4 % LAB HEMETOLOGY METHOD 04/24/2025 4:56 PM EDT [facility] Monocytes Relative 10.5 % LAB HEMETOLOGY METHOD 04/24/2025 4:56 PM [facility] Eosinophils Relative 1.8 % LAB HEMETOLOGY METHOD 04/24/2025 4:56 PM EDT [facility] Basophils Relative 1.4 % LAB HEMETOLOGY METHOD 04/24/2025 4:56 PM [facility] Immature Granulocytes Relative 0.5 % LAB HEMETOLOGY METHOD 04/24/2025 4:56 PM [facility] Neutrophils Absolute 4.17 1.50 - 7.00 K/mcL LAB HEMETOLOGY METHOD 04/24/2025 4:56 PM [facility] Lymphocytes Absolute 1.47 1.00 - 5.00 K/mcL LAB HEMETOLOGY METHOD 04/24/2025 4:56 PM [facility] Monocytes Absolute 0.69 0.20 - 1.00 K/mcL LAB HEMETOLOGY METHOD 04/24/2025 4:56 PM [facility] Eosinophils Absolute 0.12 0.00 - 0.50 K/mcL LAB HEMETOLOGY METHOD 04/24/2025 4:56 PM [facility] Basophils Absolute 0.09 0.00 - 0.20 K/mcL LAB HEMETOLOGY METHOD 04/24/2025 4:56 PM [facility] Immature Granulocytes Absolute 0.03 0.00 - 0.03 K/mcL LAB HEMETOLOGY METHOD 04/24/2025 4:56 PM [facility] Blood Venous blood specimen / Unknown Venipuncture / Unknown 04/24/2025 3:21 PM EDT 04/24/2025 4:33 PM EDT Juwan Valdez MD LAB BLOOD ORDERABLES Final R esult [facility] [address] [place] [address], * Erythropoietin (04/24/2025 3:21 PM EDT) Erythropoietin 15.4 2.6 - 18.5 mIU/mL 04/29/2025 3:10 PM EDT [facility] Comment: Test performed at [facility], [address], [place] [address] Karyn Nash MD, PhD - Banquet Kitchen Supervisor Blood Venous blood specimen / Unknown Venipuncture / Unknown 04/24/2025 3:21 PM EDT 04/24/2025 4:33 PM EDT Juwan Valdez MD LAB BLOOD ORDERABLES Final R esult [facility] [address] [place] [address] * Iron and TIBC (04/24/2025 3:21 PM EDT) Iron 112 40 - 150 mcg/dL LAB CHEMISTRY METHOD 04/24/2025 6:19 PM EDT [facility] TIBC 275 250 - 450 mcg/dL LAB CHEMISTRY METHOD 04/24/2025 6:19 PM EDT [facility] Iron Saturation 41 15 - 50 % LAB CHEMISTRY METHOD 04/24/2025 6:19 PM EDT [facility] Blood Venous blood specimen / Unknown Venipuncture / Unknown 04/24/2025 3:21 PM EDT 04/24/2025 4:33 PM EDT Juwan Valdez MD LAB BLOOD ORDERABLES Final R esult Performing Organization Address City/[facility]/ZIP Co de Phone Number [facility] [address] [place] [address], [place] [phone] * Reticulocyte count (04/24/2025 3:21 PM EDT) Pathologist [facility] Retic Ct Abs 0.050 0.030 - 0.090 M/mcL LAB HEMETOLOGY METHOD 04/24/2025 4:56 PM EDT [facility] Retic Ct Pct 1.4 0.7 - 1.7 % LAB HEMETOLOGY METHOD 04/24/2025 4:56 PM EDT [facility] Immature Retic Fract 8.8 2.3 - 15.9 % LAB HEMETOLOGY METHOD 04/24/2025 4:56 PM EDT [facility] Reticulocyte Hemoglobin 36.6 >29.0 pcg LAB HEMETOLOGY METHOD 04/24/2025 4:56 PM EDT [facility] Blood Venous blood specimen / Unknown Venipuncture / Unknown 04/24/2025 3:21 PM EDT 04/24/2025 4:33 PM EDT Juwan Valdez MD LAB BLOOD ORDERABLES Final R esult [facility] [address] [place] [address], [place] [phone] * Protein electrophoresis, serum (04/24/2025 3:21 PM EDT) Total Protein 6.8 6.0 - 8.0 g/dL LAB CHEMISTRY METHOD 04/29/2025 3:16 PM EDT [facility] Albumin, Serum 3.7 2.9 - 4.1 g/dL LAB CHEMISTRY METHOD 04/29/2025 3:16 PM EDT [facility] Alpha 1 Globulin (g/dL) 0.2 0.1 - 0.5 g/dL LAB CHEMISTRY METHOD 04/29/2025 3:16 PM EDT [facility] Alpha 2 Globulin (g/dL) 1.1 0.7 - 1.5 g/dL LAB CHEMISTRY METHOD 04/29/2025 3:16 PM EDT [facility] Beta (g/dL) 1.1 0.7 - 1.5 g/dL LAB CHEMISTRY METHOD 04/29/2025 3:16 PM EDT [facility] Gamma Globulin (g/dL) 0.7 0.7 - 1.9 g/dL LAB CHEMISTRY METHOD 04/29/2025 3:16 PM EDT [facility] SPEP Interpretation No M-Forest seen. Essentially normal pattern. LAB CHEMISTRY METHOD 04/29/2025 3:16 PM EDT [facility] Blood Venous blood specimen / Unknown Venipuncture / Unknown 04/24/2025 3:21 PM EDT 04/24/2025 4:32 PM EDT us Juwan Valdez MD LAB BLOOD ORDERABLES Final R esult [facility] [address] [place] [address], * Protein, total (04/24/2025 3:21 PM EDT) Total Protein 6.8 6.0 - 8.0 g/dL LAB CHEMISTRY METHOD 04/24/2025 6:15 PM EDT [facility] Blood Venous blood specimen / Unknown Venipuncture / Unknown 04/24/2025 3:21 PM EDT 04/24/2025 4:32 PM EDT us Juwan Valdez MD LAB BLOOD ORDERABLES Final R esult Performing Organization Address City/[facility]/ZIP Co de Phone Number [facility] [address] [place] [address], [place] [phone] * Ferritin (04/24/2025 3:21 PM EDT) Pathologist [facility] Ferritin 154 8 - 252 ng/mL LAB CHEMISTRY METHOD 04/24/2025 6:42 PM EDT [facility] Blood Venous blood specimen / Unknown Venipuncture / Unknown 04/24/2025 3:21 PM EDT 04/24/2025 4:33 PM EDT Juwan Valdez MD LAB BLOOD ORDERABLES Final R esult Performing Organization Address [facility]/ZIP Co de Phone Number [facility] [address] [place] [address], [place] [phone] * (ABNORMAL) Basic metabolic panel (04/24/2025 3:21 PM EDT) [facility] Sodium 140 133 - 145 mmol/L LAB CHEMISTRY METHOD 04/24/2025 6:19 PM [facility] Potassium 4.7 3.5 - 5.5 mmol/L LAB CHEMISTRY METHOD 04/24/2025 6:19 PM [facility] Chloride 108 96 - 110 mmol/L LAB CHEMISTRY METHOD 04/24/2025 6:19 PM T [facility] CO2 29 21 - 32 mmol/L LAB CHEMISTRY METHOD 04/24/2025 6:19 PM [facility] Anion Gap 3 3 - 11 LAB CHEMISTRY METHOD 04/24/2025 6:19 PM [facility] Glucose 99 70 - 100 mg/dL LAB CHEMISTRY METHOD 04/24/2025 6:19 PM [facility] BUN 31(H) 5 - 25 mg/dL LAB CHEMISTRY METHOD 04/24/2025 6:19 PM EDT [facility] Creatinine 1.66(H) 0.50 - 1.10 mg/dL LAB CHEMISTRY METHOD 04/24/2025 6:19 PM EDT [facility] eGFR 30(L) >=60 mL/min/1. 73m2 LAB CHEMISTRY METHOD 04/24/2025 6:19 PM EDT [facility] Comment:Calculation based on the Chronic Kidney Disease Epidemiology Collaboration (CKD-EPI) equation refit without adjustment for race. BUN/Creatinine Ratio 18.7 LAB CHEMISTRY METHOD 04/24/2025 6:19 PM EDT [facility] Calcium 10.2 8.5 - 10.5 mg/dL LAB CHEMISTRY METHOD 04/24/2025 6:19 PM EDT [facility] Blood Venous blood specimen / Unknown Venipuncture / Unknown 04/24/2025 3:21 PM EDT 04/24/2025 4:33 PM EDT us Juwan Valdez MD LAB BLOOD ORDERABLES Final R esult [facility] [address] [place] [address], * XR Chest 2 Views (04/11/2025 11:55 AM EDT) Anatomical Region Laterality Modality Body Radiographic Maranda ging 04/11/2025 11:5 8 AM EDT Impressions 04/11/2025 11:59 AM EDT No acute pulmonary disease. Findings as above consistent with COPD as also demonstrated on the prior study performed 05/17/2022. Code 03401 -------- FINAL REPORT -------- Dictated By: Johanny Lopez Dictated Date: 04/11/2025 11:58 ET Assigned Physician: Johanny Lopez Reviewed and Electronically Signed By: Johanny Lopez Signed Date: 04/11/2025 11:59 ET Workstation ID: [id number] Transcribed By: Self Edit Transcribed Date: 04/11/2025 [...] on the prior study performed 05/17/2022. Code 91672 -------- FINAL REPORT -------- Dictated By: Johanny Lopez Dictated Date: 04/11/2025 11:58 ET Assigned Physician: Johanny Lopez Reviewed and Electronically Signed By: Johanny Loepz Signed Date: 04/11/2025 11:59 ET Workstation ID: [id number] Transcribed By: Self Edit Transcribed Date: 04/11/2025 11:58 ET us Jud Khan CHANGE MANAGEMENT EXPERT IMG XR PROCEDURES Final Result * Lipid panel with reflex to direct LDL (02/05/2025 12:45 PM EDT) Cholesterol 116 0 - 200 mg/dL LAB CHEMISTRY METHOD 02/05/2025 4:22 PM EDT [facility] Triglycerides 78 0 - 150 mg/dL LAB CHEMISTRY METHOD 02/05/2025 4:22 PM EDT [facility] HDL 69 >=40 mg/dL LAB CHEMISTRY METHOD 02/05/2025 4:22 PM EDT [facility] LDL Calculated 31 0 - 100 mg/dL LAB CHEMISTRY METHOD 02/05/2025 4:22 PM EDT [facility] VLDL Cholesterol Kendrick 15.6 mg/dL LAB CHEMISTRY METHOD 02/05/2025 4:22 PM EDT [facility] Non HDL Chol. (LDL+VLDL) 47 <145 mg/dL LAB CHEMISTRY METHOD 02/05/2025 4:22 PM EDT [facility] Chol/HDL Ratio 1.7 0.0 - 4.4 LAB CHEMISTRY METHOD 02/05/2025 4:22 PM EDT [facility] Blood Venous blood specimen / Unknown Venipuncture / Unknown 02/05/2025 12:45 PM EDT 02/05/2025 1:44 PM EDT us Gus Reynolds MD LAB BLOOD ORDERABLES Final Resul t [facility] [address] [place] [address], * ABEL DEXA AXIAL SKELETON (10/30/2020 2:27 PM EST) Anatomical Region Laterality Modality Mammography 10/30/2020 1:47 PM EST Narrative 10/30/2020 2:27 PM EST [facility] Diagnostic Imaging Department [address] [place] [address] Patient: ASTER FORBES /Age/Sex: 1940 - F Unit#: [id number] Location/Status: SPDIMAM/REG CLI Mnemonic[facility] Ordering Physician: GOSIA HEAD MD Abel Dexa [...] probability of hip fracture of 16.7%. Code 69959 Dictating Physician: JOHANNY LOPEZ MD Electronically Signed by: JOHANNY LOPEZ MD Dic Date/Time: 10/30/201425 Sign date/Time: 10/30/201426 Procedure Note Johanny Lopez MD - 09/28/2022 [facility] Diagnostic Imaging Department [address] [place] [id number] Patient: ASTER FORBES /Age/Sex: 1940 - 80 - F Unit#: [id number] Location/Status: SPDIMAM/REG CLI Mnemonic/[facility] Ordering Physician: GOSIA HEAD MD Abel Dexa [...] density of the femurs bilaterally is 0.710 gm/ub9iivqi is 70% of that of young normals [...] probability of hip fracture of 16.7%. Code 02005 Dictating Physician: JOHANNY LOPEZ MD Electronically Signed by: JOHANNY LOPEZ MD Dic Date/Time: 10/30/20 142 Sign date/Time: 10/30/20 142 Gosia Head MD IMG BI PROCEDURES Final Result from Last 3 Months or Most Recently Relevant to Health Maintenance Insurance [employer] Care Teams Campaign Manager Relationship Specialty Start Date End Date Gus Reynolds MD [address] [address] PCP - General Internal Medicine 05/25/21
== END 2025-06-17 15:52 | disposition home or self-care (01) ==
LOC: HO.HKA 09:42
PROVIDERS: PCP Internal Medicine; Visit Provider Internal Medicine Hypertension Specialist
DX: N18.30 Chronic kidney disease, stage 3 unspecified (principal); D64.9 Anemia, unspecified
CPT/HCPCS: 98012

== ENCOUNTER 2025-08-14 10:27 | Outpatient (REF) | payer OTHER, SELFPAY ==
--- OUTSIDE RECORDS SUMMARY | 2025-08-14 12:13 | XMS_ITS | Clinical Summary ---
Author Organization [address] [facility] Address [address] [place] [address] Phone Care Team Providers Care Frit Burner Name Role Phone Gus Reynolds MD Primary Care Provider [phone] Allergies No known active allergies Medications timolol (TIMOPTIC) 0.5 % ophthalmic solution INSTILL 1 DROP INTO LEFT EYE TWICE A DAY 04/28/20 22 Active atorvastatin (LIPITOR) 10 mg tablet Take 1 tablet (10 mg total) by mouth 1 (one) time each day. 90 each 1 02/21/20 25 025 Active levothyroxine (SYNTHROID, LEVOTHROID) 50 mcg tablet TAKE 1 TABLET TUESDAY THROUGH TUESDAY, 2 TABLETS ON SATURDAYS AND SUNDAYS. 114 tablet 1 04/15/20 25 Active Breo Ellipta 100-25 mcg/dose inhalerIndicati ons:Other nonspecific abnormal finding of lung field,Chronic obstructive pulmonary disease, unspecified (CMS/HCC V24, CMS/HCC V28) TAKE 1 PUFF BY MOUTH EVERY DAY 180 each 3 06/19/20 25 Active memantine (NAMENDA) 5 mg tablet TAKE 1 TABLET (5 MG TOTAL) BY MOUTH 1 (ONE) TIME EACH DAY. FOR 90 DAYS 90 tablet 1 07/16/20 25 Active memantine (NAMENDA) 5 mg tablet Take 1 tablet (5 mg total) by mouth 1 (one) time each day. for 90 days 90 tablet 1 01/30/20 25 025 Discontinued Active Problems Problem Noted Date Diagnosed Date Elevated blood pressure reading 04/24/2024 Chronic headaches 10/21/2020 Urge incontinence 04/19/2020 Overview (08/28/2024): [facility] Bladder stone 03/27/2020 Overview (08/28/2024): Surgery 03/2020 CKD (chronic kidney disease) , stage III ([facility] V24, [facility] V28) 03/27/2020 Overview (08/28/2024): Dr. Casas in past B12 deficiency 11/02/2019 Overview (08/28/2024): 10/2019 labs, trying high-dose oral supplementation, good response Pulmonary nodules 08/14/2019 Bloating 02/01/2019 Irritable bowel syndrome 02/01/2019 Age-related cataract of both eyes 06/23/2018 Advanced COPD ([facility] V24, [facility] V28) 018 Centrilobular emphysema ([facility] V24, [facility] V2 8) 05/05/2018 Stage 3 severe COPD by GOLD classification ([facility] V24, [facility] V28) 05/05/2018 Overview (08/28/2024): Reduced DLCO with PFTs Pulm nodules, following with [facility], pulmonology Abdominal aortic aneurysm (AAA) ([facility] V24) Overview (08/28/2024): 02/2012: stable at 2.7 cm . 07/2012: stable at 3 cm. 2013 and 2014: 3.3 cm. 2018 3.7cm Adrenal adenoma 10/14/2017 Overview (08/28/2024): R adrenal 1.2 cm adenoma, 02/2012. Repeat CT scan 08/2012 stable Atherosclerosis of aorta ([facility] V24) 8 Cervical spinal stenosis 10/14/2017 Overview (08/28/2024): Cervical MRI C3-4 bilaterally Colon polyp 10/14/2017 Overview (08/28/2024): Polpectomy Dr. Wilde and repeat in 2015. Glaucoma 10/14/2017 HTN (hypertension) 10/14/2017 Hypothyroidism 10/14/2017 Osteoporosis 10/14/2017 Overview (08/28/2024): Start of Fosamax 11/26/20 Restless leg syndrome 10/14/2017 Encounters Date Type Department Care Team Description 06/24/2025 3:35 PM EDT Office Visit [facility] Hematology Oncology [address] [place] [address] Juwan Valdez MD Macrocytic anemia (Primary Dx); Chronic renal insufficiency, stage 3 (moderate) ([facility] V24, [facility] V28) from Last 3 Months Immunizations Immunization Administration Dates Next Due Influenza trivalent, 0.5mL [...] Date Site/Laterality Comments OTHER SURGICAL HISTORY PROCEDURE: [place] EGD REMOVAL TUMOR POLYP/OTHER LESION SNARE TECH; COMMENT: polpectomy 2010 and repeat 2015, Dr. Wilde CATARACT EXTRACTION Bilateral PROCEDURE: HISTORICAL CATARACT REMOVAL COLONOSCOPY 01/11/2011 PROCEDURE: HISTORICAL COLONOSCOPY; COMMENT: Dr. Andry cherry OTHER SURGICAL HISTORY PROCEDURE: ---- OTHER ----; COMMENT: Breast biopsy Medical History Medical History Date Comments Osteoporosis 10/14/2017 DX:Osteoporosis COPD (chronic obstructive pu lmonary disease) ([facility] V24, [facility] V28) 10/14/2017 DX:COPD (chronic o bstructive pulmonary disease) ([facility]) HTN (hypertension) 10/14/2017 DX:HTN (hyper tension) Hypothyroidism 10/14/2017 DX:Hypothyroidis m Restless leg syndrome 10/14/2017 DX:Restles s leg syndrome Colon polyp 10/14/2017 DX:Colon polyp; COMMENT: Polpectomy Dr. Wilde and repeat in 2015. Adrenal adenoma 10/14/2017 DX:Adrenal adeno ma; COMMENT: R adrenal 1.2 cm adenoma, 02/2012. Repeat CT scan 08/2012 stable Glaucoma 10/14/2017 DX:Glaucoma Atherosclerosis of aorta ([facility] V24) 10/14/2017 DX:Atherosclerosis of aorta ([facility]) Abdominal aortic aneurysm (A AA) ([facility] V24) 10/14/2017 DX:Abdominal aortic aneurysm (AAA) ([facility]); COMMENT: 02/2012: stable at 2.7 cm . [...] Sign Reading Time Taken Comments Blood Pressure 147/90 06/24/2025 3:32 PM EDT Pulse 79 06/24/2025 3:32 PM EDT Temperature 36.8 C (98.3 F) 06/24/2025 3:32 PM EDT Respiratory Rate 16 04/11/2025 11:03 AM EDT Oxygen Saturation 98% 06/24/2025 3:32 PM EDT Inhaled Oxygen Concentration - - Weight 57.6 kg (127 lb) 06/24/2025 3:32 PM EDT Height 162.6 cm (5' 4 ) 04/24/2025 2:55 PM EDT Body Mass Index 21.8 04/24/2025 2:55 PM EDT Plan of Treatment Upcoming Encounters Date Type Department Care Team (Late st Contact Info) Description 10/21/2025 3:15 PM EST Office Visit [facility] Hematology Oncology [address] [place] [phone] Juwan Valdez MD [address] [place] [address] 04/22/2026 11:00 AM EDT Office Visit Pulmonology - [place] [address] [facility] [address] [place] [id number] Jud Khan, KILEY [address] [place] [address] Health Maintenance Due Date Last Done Comments Colorectal Cancer Screening: Colonoscopy 1940 Zoster Vaccines (1 of 2) 1960 Falls Risk Assessment 09/18/2022 Medicare Annual Wellness Visit 09/18/2022 Social Influencers of Health Screening 09/18/2022 Depression Screening 10/10/2024 Hypertension/CHF/CAD Annual BMP Blood Test 04/24/2026 04/24/2025, 02/05/2025, 08/31/2024, Additional history exists DTaP,Tdap,and Td Vaccines (2 - Td or Tdap) 10/30/2029 10/30/2019 Cholesterol Screening (Lipid Panel) 02/05/2030 02/05/2025, 08/31/2024, 01/30/2024 Osteoporosis Screening (Bone Density Screening) 10/30/2030 10/30/2020, 12/13/2017 Pneumococcal Vaccine: 50+ Years Completed 08/22/2017, 08/19/2016, 07/31/2010 RSV Immunization Adult Patients Completed 08/01/2024 COVID-19 Vaccine Completed 07/30/2025, , 08/05/2023, Additional history exists Influenza Vaccine Completed 07/30/2025, , 08/02/2023, Additional history exists HIB Vaccines Aged Out No longer eligi [...] Associated Diagnosis Comments EXTERNAL ULTRASOUND REPORT 05/22/2025 BASIC METABOLIC PANEL Routine 04/24/2025 3:21 PM EDT Normocytic anemia LIPID PANEL WITH REFLEX TO DIRECT LDL [...] Laterality Modality Ultrasound us Provider [facility] US PROCEDURES Final Result * (ABNORMAL) Basic metabolic panel (04/24/2025 3:21 PM EDT) Sodium 140 133 - 145 mmol/L LAB CHEMISTRY METHOD 04/24/2025 6:19 PM EDT [facility] Potassium 4.7 3.5 - 5.5 mmol/L LAB CHEMISTRY METHOD 04/24/2025 6:19 PM [facility] Chloride 108 96 - 110 mmol/L LAB CHEMISTRY METHOD 04/24/2025 6:19 PM [facility] CO2 29 21 - 32 mmol/L LAB CHEMISTRY METHOD 04/24/2025 6:19 PM [facility] Anion Gap 3 3 - 11 LAB CHEMISTRY METHOD 04/24/2025 6:19 PM [facility] Glucose 99 70 - 100 mg/dL LAB CHEMISTRY METHOD 04/24/2025 6:19 PM [facility] BUN 31(H) 5 - 25 mg/dL LAB CHEMISTRY METHOD 04/24/2025 6:19 PM [facility] Creatinine 1.66(H) 0.50 - 1.10 mg/dL LAB CHEMISTRY METHOD 04/24/2025 6:19 PM [facility] eGFR 30(L) >=60 mL/min/1. 73m2 LAB CHEMISTRY METHOD 04/24/2025 6:19 PM [facility] Comment:Calculation based on the Chronic Kidney Disease Epidemiology Collaboration (CKD-EPI) equation refit without adjustment for race. BUN/Creatinine Ratio 18.7 LAB CHEMISTRY METHOD 04/24/2025 6:19 PM [facility] Calcium 10.2 8.5 - 10.5 mg/dL LAB CHEMISTRY METHOD 04/24/2025 6:19 PM [facility] Blood Venous blood specimen / Unknown Venipuncture / Unknown 04/24/2025 3:21 PM EDT 04/24/2025 4:33 PM EDT Juwan Valdez MD LAB BLOOD ORDERABLES Final R esult [facility] [address] [place] [address], [place] [phone] * Lipid panel with reflex to direct LDL (02/05/2025 12:45 PM EDT) Cholesterol 116 0 - 200 mg/dL LAB CHEMISTRY METHOD 02/05/2025 4:22 PM EDT [facility] Triglycerides 78 0 - 150 mg/dL LAB CHEMISTRY METHOD 02/05/2025 4:22 PM EDT [facility] HDL 69 >=40 mg/dL LAB CHEMISTRY METHOD 02/05/2025 4:22 PM EDT [facility] LDL Calculated 31 0 - 100 mg/dL LAB CHEMISTRY METHOD 02/05/2025 4:22 PM EDT [facility] VLDL Cholesterol Kendrick 15.6 mg/dL LAB CHEMISTRY METHOD 02/05/2025 4:22 PM EDT [facility] Non HDL Chol. (LDL+VLDL) 47 <145 mg/dL LAB CHEMISTRY METHOD 02/05/2025 4:22 PM EDT [facility] Chol/HDL Ratio 1.7 0.0 - 4.4 LAB CHEMISTRY METHOD 02/05/2025 4:22 PM EDT [facility] Blood Venous blood specimen / Unknown Venipuncture / Unknown 02/05/2025 12:45 PM EDT 02/05/2025 1:44 PM EDT Gus Reynolds MD LAB BLOOD ORDERABLES Final Resul t [facility] [address] [place] [address], [place] [phone] * ABEL DEXA AXIAL SKELETON (10/30/2020 2:27 PM EST) Anatomical Region Laterality Modality Mammography 10/30/2020 1:47 PM EST Narrative 10/30/2020 2:27 PM EST [facility] Diagnostic Imaging Department [address] [place] [address] Patient: ASTER FORBES /Age/Sex: 1940 - 80 - F Unit#: [id number] Location/Status: SPDIMAM/REG CLI Mnemonic/Ordering Site: MAMDEXAAX/SPMAM Ordering Physician: GOSIA HEAD MD Abel Dexa [...] probability of hip fracture of 16.7%. Code 93775 Dictating Physician: JOHANNY LOPEZ MD Electronically Signed by: JOHANNY LOPEZ MD Dic Date/Time: 10/30/20 1426 Sign date/Time: 10/30/20 142 Procedure Note Johanny Lopez MD - 09/28/2022 [facility] Diagnostic Imaging Department [address] [place] [id number] Patient: ASTER FORBES /Age/Sex: 1940 - 80 - F Unit#: [id number] [facility]/Ordering Site: [facility] Ordering Physician: GOSIA HEAD MD Abel [...] density of the femurs bilaterally is 0.710 gm/mc0atqei is 70% of that of young normals [...] probability of hip fracture of 16.7%. Code 85034 Dictating Physician: JOHANNY LOPEZ MD Electronically Signed by: JOHANNY LOPEZ MD Dic Date/Time: 10/30/20 1426 Sign date/Time: 10/30/20 142 Gosia Head MD IMG BI PROCEDURES Final Result from Last 3 Months or Most Recently Relevant to Health Maintenance Insurance [employer] Care Teams Frit Burner Relationship Specialty Start Date End Date Gus Reynolds MD [address] [place] [address] [address] [place] [address] PCP - General Internal Medicine 05/25/21
[2025-08-14 13:33] LABS: MANUAL DIFF FLAG NO
[2025-08-14 13:40] LABS: Hematocrit 39.0 % (37.0-47.0); Hemoglobin 12.4 g/dl (12.0-16.0); Imm Gran Abs Auto 0.02 X10*3/uL (0.00-0.03); Imm Gran Pct Auto 0.2 % (0.0-0.4); Lymphocytes Absolute Auto 1.4 X10*3/uL (1.2-4.9); Mean Corpuscular HGB Conc 31.8 g/dl (31.0-35.0); Mean Corpuscular Hemoglobin 32.8 pg (27.0-33.0); Mean Corpuscular Volume 103.2 fL (80.0-98.0); NRBC Abs Auto 0.000 X10*3/uL (0.0-0.012); NRBC Pct Auto 0.0 /100WBC (0.0-0.2); Platelet Count 430 X10*3/uL (160-400); Red Blood Count 3.78 X10*6/uL (4.20-5.50); White Blood Count 8.3 X10*3/uL (4.8-10.8)
[2025-08-14 14:03] LABS: Anion Gap 12 (12-20); Blood Urea Nitrogen 29 mg/dL (9-16); Calcium 10.2 mg/dL (8.4-10.2); Carbon Dioxide 25 mmol/L (22-29); Chloride 109 mmol/L (96-108); Estimated Glomerular Filt Rate 35; Potassium 4.3 mmol/L (3.3-5.1); Sodium 142 mmol/L (135-145)
== END 2025-08-14 10:28 | disposition home or self-care (01) ==
LOC: HO.HKASLDS 10:27
PROVIDERS: PCP Internal Medicine; Visit Provider Internal Medicine Hypertension Specialist
DX: N18.30 Chronic kidney disease, stage 3 unspecified (principal); D63.8 Anemia in other chronic diseases classified elsewhere
CPT/HCPCS: 36415; 80048; 82784; 85025; 86334

== ENCOUNTER 2025-08-26 16:42 | Outpatient (AMB) | payer OTHER, SELFPAY ==
[2025-08-26 16:24] VITALS: BP 108/78; PULSE 74; O2SAT 99; BMI 19.5
--- NOTE | 2025-08-26 16:24 | HO.NEPHOV_ITS ---
Vital Signs 08/26/25 16:24 Height 5 ft 6 in Weight 121 lb BMI 19.5 BP 108/78 Blood Pressure Location Lt brachial Position Sitting Pulse 74 Pulse Source Pulse Oximeter Pulse Oximetry (%) 99 Oxygen Delivery Method Room Air Intake Visit Reasons: Jul F/U with labs Manager Of Revenue Required: No Accompanied by: Daughter Allergies No Known Allergies Allergy (Verified 08/26/25 16:25) Medication List - Last Reconciled 08/26/25 by Emre Moss MD albuterol sulfate 90 mcg/actuation 2 puffs inhalation Q6H PRN aspirin 81 mg PO DAILY atorvastatin 10 mg PO DAILY fluticasone furoate-vilanterol 100-25 mcg/dose (Breo Ellipta) 1 ea inhalation DAILY levothyroxine 50 mcg PO DAILY memantine 5 mg PO DAILY timolol maleate 0.5% 1 drp ophthalmic (eye) BID HPI Comments Details: The patient is an 84-year-old female presenting with chronic kidney disease and cognitive decline. The cognitive decline began a couple of years ago and has been progressively worsening, with a diagnosis of vascular dementia suggested by Dr. Toussaint based on an MRI from 2019. The patient has no family history of dementia, and potential causes such as chronic alcohol use and hypertension have been ruled out. She has no history of hypertension. No history of alcohol use at all The chronic kidney disease was identified during a routine follow-up when labs revealed a creatinine level of 1.61 mg/dL and kidney function at 32ml/mt. The patient has not been diagnosed with hypertension, although it was initially suspected as a cause for referral. The patient experiences frequent nocturia, getting up several times at night, which may be related to her kidney function. The patient has a history of recurrent urinary tract infections, managed with low-dose macrobid by her primary care physician. These infections have decreased in frequency recently, but she continues to experience frequent urination at night. Anemia was noted with a hemoglobin level of 11.4 g/dL, . Seen by Dr. Eaton and advised against iron supplementation due to age-related anemia being common. The patient has hypothyroidism, which was previously poorly managed due to non- adherence to medication, resulting in a TSH level of 12. Her thyroid function has since stabilized with her managing her medication regimen. Overall oral intake has been inadequate. She drinks Coke every day. 06/17/25 Televisit Cr down to 1.40 Spoke to [place]/Daughter 08/26/25 The patient is an 85-year-old female with CKD and has persistent cough and low blood pressure. The cough has been lingering for some time, prompting a visit last week due to its persistence. There are no associated symptoms such as shortness of breath, fever, or chills, although a sore throat was noted. The patient's blood pressure was noted to be low at 100/60 mmHg during the visit. This is a deviation from her usual readings, which were previously around 130/82 mmHg. There is no indication of medication changes that could account for this drop. The patient has experienced weight loss, with a reduction of 8 pounds since A ugust. Her dietary intake appears adequate, although there is a suggestion that she may not be consuming enough food. Additionally, there is a report of bleeding from the right calf, although further details are not provided. [facility] Medical History (Updated 05/15/25 @ 09:33 by Emre Moss MD) Restless leg syndrome Osteoporosis Hypothyroidism Glaucoma Colon polyp Cervical spinal stenosis Atherosclerosis of aorta Adrenal adenoma Abdominal aortic aneurysm Stage 3 severe COPD by GOLD classification Centrilobular emphysema Advanced COPD Age-related cataract of both eyes Irritable bowel syndrome Bloating Pulmonary nodules B12 deficiency CKD (chronic kidney disease), stage III Bladder stone Urge incontinence Chronic headache Elevated blood pressure reading Surgical History H/O breast biopsy H/O cataract extraction (~01/2011) Family History Sister Breast cancer Physical Exam Vital Signs: Last Vital Signs Pulse 74 08/26/25 16:24 BP 108/78 08/26/25 16:24 Pulse Ox 99 08/26/25 16:24 Oxygen Delivery Method Room Air 08/26/25 16:24 BMI result Body Mass Index 19.5 Comfortable Neck supple no JVD. Lungs entry equal no rales. Heart S1-S2 heard no gallop or rub. Abdomen soft nontender. Neuro alert awake oriented. No asterixis. Extremities no edema. Results Reviewed Nephrology Results: Hgb, (12.0-16.0) 12.4 g/dl 08/14/25 WBC, (4.8-10.8) 8.3 X10*3/uL 08/14/25 Plt Count, (160-400) 430 X10*3/uL H 08/14/25 Sodium, (135-145) 142 mmol/L 08/14/25 Potassium, (3.3-5.1) 4.3 mmol/L 08/14/25 Chloride, (96-108) 109 mmol/L H 08/14/25 Carbon Dioxide, (22-29) 25 mmol/L 08/14/25 BUN, (9-16) 29 mg/dL H 08/14/25 Creatinine, (0.5-1.4) 1.42 mg/dL H 08/14/25 Calcium, (8.4-10.2) 10.2 mg/dL 08/14/25 PTH Intact, (8.7-77.1) 157.6 pg/mL H 05/15/25 Renal US 05/22/25 Assessment & Plan Assessment & Plan (1) CKD (chronic kidney disease), stage III: Code(s): N18.30 - Chronic kidney disease, stage 3 unspecified Category: Medical (2) Anemia: Code(s): D64.9 - Anemia, unspecified Category: Medical Plan Aster has chronic kidney disease. Urien is benign Probably has aged related nephron loss No history of hypertension. BP is low today Increase your increase her p.o. fluid intake Continue to avoid nephrotoxic agents including NSAIDs. I have not made any changes to her medications today. Elevated PTH due to secondary hyperparathyroidism- On Vit D 2000 U q weekly Calcium Normal No MCGP ; Hypogammaglobuminemia Needs work up for weight loss She will follow up with PCP Mild Anemia- [facility] Hgb 12.4 Orders: Orders Basic Metabolic Panel 6 Months N18.30 - Chronic kidney disease, stage 3 unspecified Complete Blood Count no Diff 6 Months N18.30 - Chronic kidney disease, stage 3 unspecified Coding Level of Care Code Est Pt Level 4 (06519) Diagnoses CKD (chronic kidney disease), stage III N18.30 Anemia D64.9
== END 2025-08-26 16:44 | disposition home or self-care (01) ==
LOC: HO.HKA 16:43
PROVIDERS: PCP Internal Medicine; Visit Provider Internal Medicine Hypertension Specialist
DX: N18.30 Chronic kidney disease, stage 3 unspecified (principal); D64.9 Anemia, unspecified
CPT/HCPCS: 99214